=== PATIENT | female | born 1955 | race Caucasian/White ===

== ENCOUNTER → 2016-10-03 | Day surgery (SDC) | payer OTHER ==
[~2016-10-03] VITALS: Ht 165.1 cm; Wt 90.7 kg
[~2016-10-03] MED LIST: ACETAMINOPHEN 325 MG TAB PO PRN; AcetaZOLAMIDE 500 MG ER CAP PO ONE; BSS with VANC/TOB/EPI for EYE CASES IR ONE; CYCLOPENTOLATE 2% OPHTH SOLN 2ML BTL OS ONE; HEALON DUET (HEALON 10MG/ML 0.55ML & HEALON ENDOCOAT 30MG/ML 0.85ML) As Ordered ONE; IBUPOTC PO; KETOROLAC 0.5% OPHTH SOLN OS ONE; LIDOCAINE 1% SDV 5 ML VIAL As Ordered ONE; LIDOCAINE 1% SDV 5 ML VIAL SQ PRN; LIDOCAINE 4% INJ 5 ML AMP OU ONE; LR 500 ML IV ONE; MIDAZOLAM INJ 2 MG/2 ML VIAL (J2250) As Ordered ONE; MOXIFLOXACIN IN BSS 0.25MG/0.25ML INTRACAMERAL INJ (OR EYE ONLY)(J2280) As Ordered ONE; OFLOXACIN 0.3 % (OCUFLOX) OPTH SOL 5ML OS ONE; ONDANSETRON 4MG/2ML VIAL (J2405) As Ordered ONE; ONDANSETRON 4MG/2ML VIAL (J2405) IV PRN; PHENYLEPHRINE 2.5% OPHTH SOL 2ML OS ONE; POVIDONE-IODINE 5% OPHTH PREP SOL 30ML As Ordered ONE; PRIL20TA2 PO; PROPARACAINE 0.5% OPHTH SOL 15ML OS PRN; TRIAMCINOLONE PRES FR 40 MG/ML 1ML(TRIESENCE)(OR EYE ONLY)(J3300 PER 1MG) As Ordered ONE; TRIMETHOBENZAMIDE 300 MG CAP PO PRN; TROPICAMIDE 1% OPHTH SOLN 2ML OS ONE; fentaNYL 100 MCG/2 ML INJECTION (J3010) As Ordered ONE
[2016-10-03 09:55] VITALS: BP 130/78
== END | disposition home or self-care (01) ==
LOC: M SDC 07:06
PROVIDERS: ATTEND Ophthalmology
DX: H26.9 Unspecified cataract (principal); H40.9 Unspecified glaucoma; F17.290 Nicotine dependence, other tobacco product, uncomplicated; K21.9 Gastro-esophageal reflux disease without esophagitis; M06.9 Rheumatoid arthritis, unspecified; F32.9 Major depressive disorder, single episode, unspecified; R06.83 Snoring; Z78.0 Asymptomatic menopausal state; Z79.899 Other long term (current) drug therapy

== ENCOUNTER → 2016-10-23 | Day surgery (SDC) | payer OTHER ==
[~2016-10-23] VITALS: Ht 165.1 cm; Wt 84.4 kg
[~2016-10-23] MED LIST changes: +AcetaZOLAMIDE 500 MG ER CAP As Ordered ONE; +CYCLOPENTOLATE 2% OPHTH SOLN 2ML BTL OD ONE; -CYCLOPENTOLATE 2% OPHTH SOLN 2ML BTL OS ONE; +KETOROLAC 0.5% OPHTH SOLN OD ONE; -KETOROLAC 0.5% OPHTH SOLN OS ONE; +LIDOCAINE 1% SDV 5 ML VIAL SQ ONE; -LIDOCAINE 1% SDV 5 ML VIAL SQ PRN; +LR 1,000 ML IV ONE; -LR 500 ML IV ONE; +OFLOXACIN 0.3 % (OCUFLOX) OPTH SOL 5ML OD ONE; -OFLOXACIN 0.3 % (OCUFLOX) OPTH SOL 5ML OS ONE; -ONDANSETRON 4MG/2ML VIAL (J2405) As Ordered ONE; -ONDANSETRON 4MG/2ML VIAL (J2405) IV PRN; +PHENYLEPHRINE 2.5% OPHTH SOL 2ML OD ONE; -PHENYLEPHRINE 2.5% OPHTH SOL 2ML OS ONE; +PROPARACAINE 0.5% OPHTH SOL 15ML OD PRN; -PROPARACAINE 0.5% OPHTH SOL 15ML OS PRN; +TROPICAMIDE 1% OPHTH SOLN 2ML OD ONE; -TROPICAMIDE 1% OPHTH SOLN 2ML OS ONE
[2016-10-23 09:40] VITALS: BP 145/60
== END | disposition home or self-care (01) ==
LOC: M SDC 07:47
PROVIDERS: ATTEND Ophthalmology
DX: H26.9 Unspecified cataract (principal); K21.9 Gastro-esophageal reflux disease without esophagitis; M06.9 Rheumatoid arthritis, unspecified; H40.9 Unspecified glaucoma; F32.9 Major depressive disorder, single episode, unspecified; R06.83 Snoring; F17.210 Nicotine dependence, cigarettes, uncomplicated; Z79.899 Other long term (current) drug therapy; Z78.0 Asymptomatic menopausal state

== ENCOUNTER 2018-04-09 15:35 | Inpatient (IN) | payer OTHER ==
[~2018-04-09] VITALS: Ht 165.1 cm; Wt 90.9 kg
[~2018-04-09 15:35] MED LIST changes: -ACETAMINOPHEN 325 MG TAB PO PRN; -AcetaZOLAMIDE 500 MG ER CAP As Ordered ONE; -AcetaZOLAMIDE 500 MG ER CAP PO ONE; -BSS with VANC/TOB/EPI for EYE CASES IR ONE; -CYCLOPENTOLATE 2% OPHTH SOLN 2ML BTL OD ONE; -HEALON DUET (HEALON 10MG/ML 0.55ML & HEALON ENDOCOAT 30MG/ML 0.85ML) As Ordered ONE; -KETOROLAC 0.5% OPHTH SOLN OD ONE; -LIDOCAINE 1% SDV 5 ML VIAL As Ordered ONE; -LIDOCAINE 1% SDV 5 ML VIAL SQ ONE; -LIDOCAINE 4% INJ 5 ML AMP OU ONE; -LR 1,000 ML IV ONE; -MIDAZOLAM INJ 2 MG/2 ML VIAL (J2250) As Ordered ONE; -MOXIFLOXACIN IN BSS 0.25MG/0.25ML INTRACAMERAL INJ (OR EYE ONLY)(J2280) As Ordered ONE; -OFLOXACIN 0.3 % (OCUFLOX) OPTH SOL 5ML OD ONE; -PHENYLEPHRINE 2.5% OPHTH SOL 2ML OD ONE; -POVIDONE-IODINE 5% OPHTH PREP SOL 30ML As Ordered ONE; -PROPARACAINE 0.5% OPHTH SOL 15ML OD PRN; -TRIAMCINOLONE PRES FR 40 MG/ML 1ML(TRIESENCE)(OR EYE ONLY)(J3300 PER 1MG) As Ordered ONE; -TRIMETHOBENZAMIDE 300 MG CAP PO PRN; -TROPICAMIDE 1% OPHTH SOLN 2ML OD ONE; -fentaNYL 100 MCG/2 ML INJECTION (J3010) As Ordered ONE
--- NOTE | 2018-04-09 16:05 | REP ---
Clinical: Acute chest pain . Comparison: None . Findings: The mediastinum and cardiac silhouette are stable and within normal limits for portable technique. The lung estrada are clear without acute consolidation, effusion, or pneumothorax. Skeletal structures are intact. Impression: No acute cardiopulmonary process appreciated. Electronically Signed by Sumit Simons MD 04/09/2018 03:57 P
[2018-04-09 16:06] LABS: BASO % 0.3 % (0.0-1.0); EOS # 0.3 10^3/uL (0.0-0.50); EOS % 1.9 % (0.0-3.0); HEMATOCRIT 40.4 % (36.0-47.0); HEMOGLOBIN 13.8 g/dl (12.0-15.5); LYMPH # 1.8 10^3/uL (1.5-4.5); LYMPH % 12.8 % (24.0-44.0); MEAN CORPUSCULAR HEMOGLOBIN 29.3 pg (27.0-33.0); MEAN CORPUSCULAR HGB CONC 34.2 g/dl (32.0-36.5); MEAN CORPUSCULAR VOLUME 85.8 fl (80.0-96.0); MONO # 1.1 10^3/uL (0.0-0.8); MONO % 7.4 % (0.0-5.0); NEUTROPHILS % 77.2 % (36.0-66.0); PLATELET COUNT, AUTOMATED 293 10^3/uL (150-450); RED BLOOD COUNT 4.71 10^6/uL (4.00-5.40); WHITE BLOOD COUNT 14.3 10^3/uL (4.0-10.0)
[2018-04-09] MEDS ORDERED: NITROGLYCERIN 0.4 MG SUBL TABLET SL STA (16:07)
[2018-04-09 16:12] LABS: VENOUS BASE EXCESS -2.2 (-2.0-2.0); VENOUS O2 SATURATION 81.4 % (60.0-80.0); VENOUS PARTIAL PRESSURE CO2 36.2 mmHg (38.0-50.0); VENOUS PARTIAL PRESSURE O2 44.9 mmHg (30.0-50.0); VENOUS PH 7.401 UNITS (7.330-7.430); VENOUS STANDARD HCO3 22.2 MEQ/L; VENOUS TOTAL CO2 23.1 MEQ/L (24.0-28.0)
[2018-04-09] MEDS ORDERED: MORPHINE 2 MG/ML 1ML SYRINGE (J2270) IV ONE ×2 (16:15→16:45)
[2018-04-09 16:28] VITALS: BP 126/75
[2018-04-09 16:44] LABS: ALBUMIN 3.4 GM/DL (3.2-5.2); ALT/SGPT 17 U/L (12-78); BILIRUBIN,DIRECT < 0.1 MG/DL (0.0-0.2); BILIRUBIN,TOTAL 0.3 MG/DL (0.2-1.0); BLOOD UREA NITROGEN 11 MG/DL (7-18); CALCIUM LEVEL 8.6 MG/DL (8.8-10.2); CARBON DIOXIDE LEVEL 20 MEQ/L (21-32); CHLORIDE LEVEL 106 MEQ/L (98-107); CK-MB VALUE MASS < 1.0 NG/ML (<3.6); CPK CREATINE PHOSPHOKINASE 51 U/L (26-192); CREATININE FOR GFR 0.78 MG/DL (0.55-1.30); GLOMERULAR FILTRATION RATE > 60.0 (>45); GLUCOSE, FASTING 119 MG/DL (70-100); LIPASE 105 U/L (73-393); MB/CK RELATIVE INDEX 1.96 (< OR =4); NT-PRO BNP 354 PG/ML (<125); POTASSIUM SERUM 4.1 MEQ/L (3.5-5.1); SODIUM LEVEL 136 MEQ/L (136-145); TOTAL PROTEIN 7.1 GM/DL (6.4-8.2); TROPONIN I < 0.02 NG/ML (< 0.10)
[2018-04-09] MEDS ORDERED: NS 1,000 ML IV ONE (17:00)
[2018-04-09] MEDS ORDERED: ISOVUE-370 76% 100ML VIAL (Q9967) As Ordered ONE (17:01)
--- NOTE | 2018-04-09 17:24 | REPVR ---
EXAM: CT Angiography Chest With Contrast EXAM DATE/TIME: 04/09/2018 5:06 PM CLINICAL HISTORY: 62 years old, female; Pain and signs and symptoms; Shortness of breath; Chest pain; Type not specified; Additional info: Cp and SOB TECHNIQUE: Axial computed tomographic angiography images of the chest with intravenous contrast using CT angiography protocol. All CT scans at this facility use at least one of these dose optimization techniques: automated exposure control; mA and/or kV adjustment per patient size (includes targeted exams where dose is matched to clinical indication); or iterative reconstruction. Coronal and sagittal reformatted images were created and reviewed. MIP reconstructed images were created and reviewed. CONTRAST: 75 ml of ISOVUE 370 administered intravenously. COMPARISON: CR PORTABLE CHEST X-RAY 04/09/2018 3:51 PM FINDINGS: Pulmonary arteries: Suboptimal inspiratory effort. No pulmonary embolus. Aorta: The aorta demonstrates mild atherosclerotic calcification. No aortic dissection or aneurysm. Lungs: Mild pleural-parenchymal scarring both apices. There is bibasilar compressive atelectasis. Small foci of emphysema and peripheral airway disease in the upper lung zones. Pleural space: Normal. No pneumothorax. No pleural effusion. Heart: Small pericardial effusion. Mediastinum: Moderate hiatal hernia. Lymph nodes: Unremarkable. No enlarged lymph nodes. Bones/joints: The spine demonstrates mild degenerative changes. Soft tissues: There bilateral breast implants. IMPRESSION: 1. No aortic dissection or aneurysm. 2. Small pericardial effusion. 3. Moderate hiatal hernia. 4. No pulmonary embolus. Electronically signed by: Justo Last On 04/09/2018 17:24:41 PM
[2018-04-09] MEDS ORDERED: KETOROLAC 30 MG/ML VIAL (J1885) IV ONE ×2 (17:45)
[2018-04-09] MEDS ORDERED: HYDROMORPHONE HCL 0.5 MG/ 0.5 ML SYRINGE (J1170 PER 1) As Ordered ONE (18:13)
[2018-04-09] MEDS: HYDROMORPHONE HCL 0.5 MG/ 0.5 ML SYRINGE (J1170 PER 1) IV PRN ×2 (18:17→21:51)
[2018-04-09] MEDS ORDERED: XALA0.007 OU (18:34)
[2018-04-09] MEDS ORDERED: BRIM2OPD OD (18:34)
[2018-04-09] MEDS ORDERED: TIMO0.5S29 OD (18:34)
[2018-04-09] MEDS ORDERED: PANTOPRAZOLE 40MG INJ (PROTONIX) (C9113) IV ONE (19:30)
[2018-04-09] MEDS ORDERED: ACETAMINOPHEN TAB 650MG DOSE (2X325MG) PO PRN (19:45)
[2018-04-09] MEDS ORDERED: GI COCKTAIL 50ML BTL(HYOSCYAMINE/MAALOX/LIDOCAINE VISCOUS)(1:3:1) PO ONE (20:00)
[2018-04-09] MEDS ORDERED: NS 1,000 ML IV SCH (20:55)
[2018-04-09] MEDS: LATANOPROST 0.005% OPHTH SOLN 2.5 ML OU SCH (21:00)
[2018-04-09] MEDS: BRIMONIDINE 0.15% OPHTH SOLN 5 ML OD SCH (21:00)
[2018-04-09] MEDS ORDERED: ONDANSETRON 4MG/2ML VIAL (J2405) As Ordered ONE (22:10)
[2018-04-09 22:50] VITALS: BP 125/78
[2018-04-09] MEDS: SUCRALFATE 1 GM TAB PO SCH (23:00)
[2018-04-09] MEDS: ONDANSETRON 4MG/2ML VIAL (J2405) IV SCH (23:00)
[2018-04-10] MEDS: ONDANSETRON 4MG/2ML VIAL (J2405) IV SCH ×4 (04:15→21:30)
[2018-04-10] MEDS: HEPARIN SOD (PORCINE) 5000 UNITS/ML VIAL SC SCH ×3 (05:42→21:30)
[2018-04-10 05:59] LABS: HEMATOCRIT 37.7 % (36.0-47.0); HEMOGLOBIN 12.3 g/dl (12.0-15.5); MEAN CORPUSCULAR HEMOGLOBIN 28.7 pg (27.0-33.0); MEAN CORPUSCULAR HGB CONC 32.6 g/dl (32.0-36.5); MEAN CORPUSCULAR VOLUME 87.9 fl (80.0-96.0); PLATELET COUNT, AUTOMATED 268 10^3/uL (150-450); RED BLOOD COUNT 4.29 10^6/uL (4.00-5.40); WHITE BLOOD COUNT 18.6 10^3/uL (4.0-10.0)
[2018-04-10 06:00] VITALS: BP 120/64
[2018-04-10 06:34] LABS: BLOOD UREA NITROGEN 17 MG/DL (7-18); CALCIUM LEVEL 8.5 MG/DL (8.8-10.2); CARBON DIOXIDE LEVEL 22 MEQ/L (21-32); CHLORIDE LEVEL 106 MEQ/L (98-107); CREATININE FOR GFR 0.83 MG/DL (0.55-1.30); GLOMERULAR FILTRATION RATE > 60.0 (>45); GLUCOSE, FASTING 154 MG/DL (70-100); POTASSIUM SERUM 4.4 MEQ/L (3.5-5.1); SODIUM LEVEL 136 MEQ/L (136-145)
[2018-04-10] MEDS ORDERED: OMEPRAZOLE 20 MG CAP PO SCH (09:00)
[2018-04-10 10:00] VITALS: BP 135/79
[2018-04-10] MEDS: SUCRALFATE 1 GM TAB PO SCH ×4 (10:10→21:30)
[2018-04-10] MEDS: PANTOPRAZOLE 40MG INJ (PROTONIX) (C9113) IV SCH ×2 (10:10→21:30)
[2018-04-10] MEDS: KETOROLAC 30 MG/ML VIAL (J1885) IV SCH ×2 (10:14→18:01)
[2018-04-10] MEDS: LATANOPROST 0.005% OPHTH SOLN 2.5 ML OU SCH ×2 (10:15→21:29)
[2018-04-10] MEDS: BRIMONIDINE 0.15% OPHTH SOLN 5 ML OD SCH ×2 (10:15→21:29)
[2018-04-10] MEDS ORDERED: methylPREDNISolone INJ 40 MG/1 ML VIAL (J2920) IV ONE (10:30)
[2018-04-10 10:31] LABS: CK-MB VALUE MASS < 1.0 NG/ML (<3.6); CPK CREATINE PHOSPHOKINASE 39 U/L (26-192); MB/CK RELATIVE INDEX 2.56 (< OR =4); TROPONIN I < 0.02 NG/ML (< 0.10)
--- NOTE | 2018-04-10 11:11 | IPNPDOC ---
Subjective Date Seen The patient was seen on 04/10/18. Subjective Chief Complaint/HPI Chest pain and difficulty in breathing Events since last encounter Continues to have diffuse chest pain on both sides below her breasts says its wrapping around her chest causing her to have difficulty in taking deep breaths. No appetite. also complains of wrist pain and knee pains. No fever or chills, no cough or phlegm. Objective Physical Examination General Exam: Positive: Alert, Cooperative, No Acute Distress Eye Exam: Positive: PERRLA, Conjunctiva & lids normal, EOMI; Negative: Sclera icteric ENT Exam: Positive: Atraumatic, Mucous membr. moist/pink, Pharynx Normal Neck Exam: Positive: Supple; Negative: JVD, thyromegaly Chest Exam: Positive: Clear to auscultation, Normal air movement, Other (tender to palpation on the ribs across the whole of chest wall) Heart Exam: Positive: Rate Normal, Regular Rhythm, Normal S1, Normal S2; Negative: Murmurs, Rubs Abdomen Exam: Positive: Normal bowel sounds, Soft; Negative: Tenderness, Hepatospenomegaly Extremity Exam: Positive: Normal pulses; Negative: Clubbing, Cyanosis, Edema Skin Exam: Positive: Nl turgor and temperature; Negative: Rash, Breakdown Psych Exam: Positive: Mental status NL, Mood NL, Oriented x 3 Assessment /Plan Assessment This is a 62 year old female with no PMD and PMH of arthritis from a young age told was OA and OP not on any prescription medications came to the ED for severe chest pain for one causing her to have difficulty in breathing. She was admitted for orh up of chest pain and to rule out ACS> Chest pain most probably musculoskeletal vs Gastritis and reflux cardiac enzymes are negative and ekg no changes of ACS CT angio of the chest negative. will give toradol and tylenol for pain control will also give a dose of methyl pred for antiinflammatory effects . continue pantoprazole, sucralfate. Arthritis ESR is 44 will check crp, RA, SAKINA. continue toradol and tylenol Hiatal hernia seen in CT chest continue antireflux measures. Plan/VTE VTE Prophylaxis Ordered?: Yes VS, I&O, 24H, Fishbone Vital Signs/I&O Vital Signs Date Time Temp Pulse Resp B/P (MAP) Pulse Ox O2 Delivery O2 Flow Rate FiO2 04/10/18 10:00 97.9 110 19 135/79 (97) 91 Room Air I&O- Last 24 Hours up to 6 AM 04/10/18 05:59 Intake Total 1000 ml Output Total 0 ml Balance 1000 ml Laboratory Data 24H LABS Laboratory Tests 2 04/09/18 16:00: Immature Granulocyte % (Auto) 0.4, White Blood Count 14.3H, Red Blood Count 4.71, Hemoglobin 13.8, Hematocrit 40.4, Mean Corpuscular Volume 85.8, Mean Corpuscular Hemoglobin 29.3, Mean Corpuscular Hemoglobin Concent 34.2, Red Cell Distribution Width 13.0, Platelet Count 293, Neutrophils (%) (Auto) 77.2H, Lymphocytes (%) (Auto) 12.8L, Monocytes (%) (Auto) 7.4H, Eosinophils (%) (Auto) 1.9, Basophils (%) (Auto) 0.3, Neutrophils # (Auto) 11.0H, Lymphocytes # (Auto) 1.8, Monocytes # (Auto) 1.1H, Eosinophils # (Auto) 0.3, Basophils # (Auto) 0.0, Nucleated Red Blood Cells % (auto) 0.0, Erythrocyte Sedimentation Rate 44H, Blood Gas Bicarbonate Standard 22.2, Venous Blood pH 7.401, Venous Blood Partial Pressure CO2 36.2L, Venous Blood Partial Pressure O2 44.9, Venous Blood Total Carbon Dioxide 23.1L, Venous Blood HCO3 22.0L, Venous Blood Oxygen Saturation 81.4H, Venous Blood Base Excess -2.2L, Anion Gap 10, Glomerular Filtration Rate > 60.0, Calcium Level 8.6L, Aspartate Amino Transf (AST/SGOT) 14, Alanine Aminotransferase (ALT/SGPT) 17, Alkaline Phosphatase 77, Total Bilirubin 0.3, Direct Bilirubin < 0.1, Total Creatine Kinase 51, Creatine Kinase MB < 1.0, Creatine Kinase MB Relative Index 1.96, Troponin I < 0.02, OB-Bcr-C-Type Natriuretic Peptide 354H, Total Protein 7.1, Albumin 3.4, Albumin/Globulin Ratio 0.92L, Lipase 105, Thyroid Stimulating Hormone (TSH) 2.730 04/10/18 05:45: Nucleated Red Blood Cells % (auto) 0.0, Anion Gap 8, Glomerular Filtration Rate > 60.0, Calcium Level 8.5L, Total Creatine Kinase 39, Creatine Kinase MB < 1.0, Creatine Kinase MB Relative Index 2.56, Troponin I < 0.02, Blood Urea Nitrogen 17#, Creatinine 0.83, Sodium Level 136, Potassium Level 4.4, Chloride Level 106, Carbon Dioxide Level 22 CBC/BMP Laboratory Tests 04/09/18 16:00 Red Blood Count 4.71, Mean Corpuscular Volume 85.8, Mean Corpuscular Hemoglobin 29.3, Mean Corpuscular Hemoglobin Concent 34.2, Red Cell Distribution Width 13.0, Neutrophils (%) (Auto) 77.2 H, Lymphocytes (%) (Auto) 12.8 L, Monocytes (%) (Auto) 7.4 H, Eosinophils (%) (Auto) 1.9, Basophils (%) (Auto) 0.3, Neutroph ils # (Auto) 11.0 H, Lymphocytes # (Auto) 1.8, Monocytes # (Auto) 1.1 H, Eosinophils # (Auto) 0.3, Basophils # (Auto) 0.0 04/10/18 05:45 Red Blood Count 4.29, Mean Corpuscular Volume 87.9, Mean Corpuscular Hemoglobin 28.7, Mean Corpuscular Hemoglobin Concent 32.6, Red Cell Distribution Width 13.4, Calcium Level 8.5 L, Total Creatine Kinase 39 Microbiology Microbiology 04/09/18 Blood Culture, Received Pending 04/09/18 Blood Culture, Received Pending JANI GOODSON MD Apr 10, 2018 11:11
[2018-04-10] MEDS: ACETAMINOPHEN 500 MG TAB PO SCH ×2 (13:42→21:30)
[2018-04-10 14:00] VITALS: BP 127/73
--- NOTE | 2018-04-10 16:48 | ECGEPIP ---
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
[2018-04-10] MEDS ORDERED: NS 1,000 ML IV SCH (20:55)
--- NOTE | 2018-04-10 21:31 | HPE ---
DATE OF ADMISSION: 04/09/2018 CHIEF COMPLAINT: Chest pain with shortness of breath. HISTORY OF PRESENT ILLNESS: This is a 62-year-old female with a past medical history of glaucoma and acid reflux, arthritis on chronic nonsteroidal antiinflammatory drugs, who presented with a chief complaint of chest pain. She reports that the chest pain started last week, it has been 10 out of 10, associated with shortness of breath and deep breathing. She said that it started around her right shoulder area and moved under her breast; however, by Sunday this had actually completely resolved, but today the pain came back again, severe 10 out of 10 pain all on her breast area. She describes the pain as sharp and worse with deep inhalation, it is practically constant. She currently rates it as an 11 out of 10. She does report that she takes ibuprofen 1000 mg twice daily for osteoarthritis. She has been self medicating her arthritic pain. She does not have a primary care doctor and does not regularly followup with a physician. She denies any history of heart disease. No recent immobility. No recent viral infection. REVIEW OF SYSTEMS: Negative all 14 systems except as noted above. PAST MEDICAL HISTORY: As noted in history of present illness. PAST SURGICAL HISTORY: History of cataract surgery and breast implants over 20 years ago. MEDICATIONS: The patient's home medications are: - Timolol eye drops - famotidine eye drops - Prilosec 20 mg daily - latanoprost eye drops - ibuprofen Please see medical record for full medication list. SOCIAL HISTORY: The patient reports that she smokes one pack per day. No drugs or alcohol. She lives with her boyfriend. She has never been and has no children. FAMILY HISTORY: No family history of gastrointestinal malignancy. PHYSICAL EXAMINATION: Initially she was afebrile at 98.5, blood pressure 120/77, heart rate 104, saturating 94% on room air. GENERAL: She appears distressed and in pain. HEENT: Oropharynx is clear. NECK: Supple. CARDIOVASCULAR: Regular rate and rhythm. No murmurs, rubs or gallops. No pericardial rub heard. The patient has no reproducible chest pain. LUNGS: Clear to auscultation bilaterally. ABDOMEN: Soft, nontender, nondistended. Positive bowel sounds. EXTREMITIES: No clubbing, cyanosis or edema. NEUROLOGIC: Alert and oriented times three. Follows simple commands. No focal neurological deficits. SKIN: Intact. PSYCHIATRIC: Mood stable. LABORATORIES: White count is elevated to 14.3. Chemistry reveals a potassium of 4.1, creatinine 0.7. Liver function tests unremarkable. Troponin was negative times one. TSH unremarkable. BNP was slightly elevated at 354. IMAGING: The patient had a CT angio done that shows no aortic dissection or aneurysm. There was a small pericardial effusion. No pulmonary embolus. Moderate hiatal hernia. She also had a chest x-ray done on admission that showed no acute process. She also had an electrocardiogram (EKG) that did not show any ST elevations. ASSESSMENT AND PLAN: This is a 62-year-old female with a past medical history of glaucoma, gastroesophageal reflux disease (GERD), arthritis on chronic high dose nonsteroidal antiinflammatory drugs (NSAIDs), who presents with chief complaint of nonretractable chest pain. 1. Chest pain, may be secondary to peptic ulcer disease versus pericardial process. I am most concerned that this is related to peptic ulcer disease actually because the patient takes high doses of ibuprofen and is not monitored clinically by a physician. I did speak to truck bench mechanic revenue enforcement collection agent, Dr. Rodriguez, given that the patient did have a small pericardial effusion and had possible concerns of pericarditis, but agreed to treat a possible gastrointestinal etiology first and we will reconsult cardiology if her symptoms do not improve. Further supporting a diagnosis of peptic ulcer disease is that the patient did not improve with the Toradol that she was given in the emergency room, which normally would significantly improve pericarditis. Therefore, I have started the patient on IV proton pump inhibitor twice a day, as well as Carafate four times daily. I have given her one dose of a GI cocktail. For now, she is hemodynamically stable. I will keep her nothing by mouth and put her on maintenance IV fluids at 75 mL per hour. I will keep her n.p.o. in case GI wants to do a possible scope tomorrow. Primary team should consult GI in the morning. We will see if this improves her symptoms and if not consider cardiology consultation for possible pericardial process. It could also be musculoskeletal in origin. If she has pain overnight, I would stick to giving her morphine as needed. She is opioid naive and we will have to be careful with her dosing. For now, I am not going to give her any narcotics in hopes that the GI medications may improve her symptoms, but if narcotics are needed overnight then would prefer narcotics instead of NSAIDs. 2. History of glaucoma. Continue home medications. 3. Deep vein thrombosis (DVT) prophylaxis. We will place on subcutaneous heparin. The patient is DO NOT RESUSCITATE, DO NOT INTUBATE.
[2018-04-10 22:00] VITALS: BP 120/78
[2018-04-11] MEDS: KETOROLAC 30 MG/ML VIAL (J1885) IV SCH ×2 (01:39→10:42)
[2018-04-11 02:00] VITALS: BP 112/70
[2018-04-11] MEDS: HEPARIN SOD (PORCINE) 5000 UNITS/ML VIAL SC SCH (05:01)
[2018-04-11] MEDS: ACETAMINOPHEN 500 MG TAB PO SCH (05:02)
[2018-04-11] MEDS: ONDANSETRON 4MG/2ML VIAL (J2405) IV SCH ×2 (05:02→10:42)
[2018-04-11 05:56] LABS: HEMATOCRIT 31.1 % (36.0-47.0); HEMOGLOBIN 10.4 g/dl (12.0-15.5); MEAN CORPUSCULAR HEMOGLOBIN 29.1 pg (27.0-33.0); MEAN CORPUSCULAR HGB CONC 33.4 g/dl (32.0-36.5); MEAN CORPUSCULAR VOLUME 87.1 fl (80.0-96.0); PLATELET COUNT, AUTOMATED 221 10^3/uL (150-450); RED BLOOD COUNT 3.57 10^6/uL (4.00-5.40)
[2018-04-11 06:00] VITALS: BP 112/60
[2018-04-11] MEDS: LATANOPROST 0.005% OPHTH SOLN 2.5 ML OU SCH (08:04)
[2018-04-11] MEDS: BRIMONIDINE 0.15% OPHTH SOLN 5 ML OD SCH (08:04)
[2018-04-11] MEDS: SUCRALFATE 1 GM TAB PO SCH (08:05)
[2018-04-11] MEDS: PANTOPRAZOLE 40MG INJ (PROTONIX) (C9113) IV SCH (08:05)
[2018-04-11] MEDS ORDERED: INFLUENZA QUADRIVALENT PF VACCINE 0.5ML SYRINGE (90686) IM ONE (09:00)
[2018-04-11 10:00] VITALS: BP 112/72
[2018-04-11] MEDS ORDERED: PRED20TA PO (11:41)
[2018-04-11] MEDS ORDERED: ACET-683 PO (11:41)
[2018-04-11] MEDS ORDERED: SUCR1TA PO (11:41)
[2018-04-11] MEDS ORDERED: IBUPOTC PO (11:41)
--- NOTE | 2018-04-29 08:48 | DS.PDOC ---
Discharge Summary General Date of Admission Apr 09, 2018 at 19:32 Date of Discharge 04/11/18 Attending Physician: JANI GOODSON MD Discharge Summary PROCEDURES PERFORMED DURING STAY: [None]. DISCHARGE DIAGNOSES: Musculoskeletal chest pain May have peptic ulcer disease also osteoarthritis glaucoma COMPLICATIONS/CHIEF COMPLAINT: Chest Pain. HISTORY OF PRESENT ILLNESS: Please see history and physical HOSPITAL COURSE: This is a 62 year old female with no PMD and PMH of arthritis from a young age told was OA and OP not on any prescription medications came to the ED for severe chest pain for one causing her to have difficulty in breathing. She was admitted for work up of chest pain and to rule out ACS> Chest pain most probably musculoskeletal vs Gastritis and reflux cardiac enzymes are negative and ekg no changes of ACS CT angio of the chest negative. will give toradol and tylenol for pain control will also give a dose of methyl pred for antiinflammatory effects . continue pantoprazole, sucralfate. Arthritis ESR is 44 will check crp, RA, SAKINA. continue toradol and tylenol Hiatal hernia seen in CT chest continue antireflux measures. DISCHARGE MEDICATIONS: Please see below. ALLERGIES: Please see below. PHYSICAL EXAMINATION ON DISCHARGE: VITAL SIGNS: Please see below. General Exam: Positive: Alert, Cooperative, No Acute Distress Eye Exam: Positive: PERRLA, Conjunctiva & lids normal, EOMI; Negative: Sclera icteric ENT Exam: Positive: Atraumatic, Mucous membr. moist/pink, Pharynx Normal Neck Exam: Positive: Supple; Negative: JVD, thyromegaly Chest Exam: Positive: Clear to auscultation, Normal air movement, Other (tender to palpation on the ribs across the whole of chest wall) Heart Exam: Positive: Rate Normal, Regular Rhythm, Normal S1, Normal S2; Negative: Murmurs, Rubs Abdomen Exam: Positive: Normal bowel sounds, Soft; Negative: Tenderness, Hepatospenomegaly Extremity Exam: Positive: Normal pulses; Negative: Clubbing, Cyanosis, Edema Skin Exam: Positive: Nl turgor and temperature; Negative: Rash, Breakdown Psych Exam: Positive: Mental status NL, Mood NL, Oriented x 3 LABORATORY DATA: Please see below. ACTIVITY: [As tolerated]. DIET: As tolerated DISPOSITION: 01 Home, Self-Care. DISCHARGE INSTRUCTIONS: Follow up with PMD in 2 weeks DISCHARGE CONDITION: [Stable]. TIME SPENT ON DISCHARGE: Greater than 30 minutes. Vital Signs/I&Os Vital Signs Label Value Date Time Patient Temperature 97.2 degrees F 04/11/18 1000 Temperature Source Temporal 04/11/18 1000 Pulse 81 04/11/18 1000 Respiratory Rate 18 bpm 04/11/18 1000 Blood Pressure Assessment 112/72 (85) 04/11/18 1000 Bedside Pulse Oximetry 92 % 04/11/18 1000 Item Value Date Time Oxygen Delivery Method Room Air 04/11/18 1000 Laboratory Data CBC/BMP Item Value Date Time Sodium Level 136 MEQ/L 04/10/18 0545 Potassium Level 4.4 MEQ/L 04/10/18 0545 Chloride Level 106 MEQ/L 04/10/18 0545 Carbon Dioxide Level 22 MEQ/L 04/10/18 0545 Anion Gap 8 MEQ/L 04/10/18 0545 Blood Urea Nitrogen 17 MG/DL # 04/10/18 0545 Creatinine 0.83 MG/DL 04/10/18 0545 Glomerular Filtration Rate > 60.0 04/10/18 0545 Fasting Glucose 154 MG/DL H 04/10/18 0545 Calcium Level 8.5 MG/DL L 04/10/18 0545 Total Creatine Kinase 39 U/L 04/10/18 0545 Creatine Kinase MB < 1.0 NG/ML 04/10/18 0545 Creatine Kinase MB Relative Index 2.56 04/10/18 0545 Troponin I < 0.02 NG/ML 04/10/18 0545 Total Creatine Kinase 51 U/L 04/09/18 1600 Creatine Kinase MB < 1.0 NG/ML 04/09/18 1600 Creatine Kinase MB Relative Index 1.96 04/09/18 1600 Troponin I < 0.02 NG/ML 04/09/18 1600 White Blood Count 15.0 10^3/uL H 04/11/18 0528 Red Blood Count 3.57 10^6/uL L 04/11/18 0528 Hemoglobin 10.4 g/dl L 04/11/18 0528 Hematocrit 31.1 % L 04/11/18 0528 Mean Corpuscular Volume 87.1 fl 04/11/18 0528 Mean Corpuscular Hemoglobin 29.1 pg 04/11/18 0528 Mean Corpuscular Hemoglobin Concent 33.4 g/dl 04/11/18 0528 Red Cell Distribution Width 13.2 % 04/11/18527 Platelet Count 221 10^3/uL 04/11/1828 Discharge Medications Scheduled Brimonidine Tartrate 0.15% (Brimonidine Tartrate) 100 Drop/5 Ml Soln, 1 DROP OD BID, (Reported) Latanoprost (Xalatan) 0.005 % Ivoyr, 1 DROP OU BID, (Reported) Omeprazole Magnesium (Prilosec Otc) 20 Mg Tab, 20 MG PO DAILY, (Reported) Prednisone (Prednisone) 20 Mg Tab, 40 MG PO DAILY Sucralfate (Carafate) 1 Gm Tab, 1 GM PO QID Timolol Maleate (Timolol Maleate) 0.5 % Ivory, 1 DROP OD BID, (Reported) Scheduled PRN Acetaminophen (Acetaminophen Extra Stren) 500 Mg Tab, 1,000 MG PO Q8HP PRN for PAIN Ibuprofen (Ibuprofen) 200 Mg Tab, 400 MG PO Q8HP PRN for PAIN Allergies Coded Allergies: No Known Drug Allergy (Verified Allergy, Unknown, 10/16/16) JANI GOODSON MD Apr 29, 2018 08:48
== END 2018-04-11 13:03 | disposition home or self-care (01) | DRG 241 ==
LOC: EDSEX 15:35 → M ED 15:35 → EDBD 15:35 → M ED INP 19:32 → M MSPAV 22:50
PROVIDERS: ADMIT Internal Medicine; ATTEND Internal Medicine Nephrology
DX: K27.9 Peptic ulcer, site unspecified, unspecified as acute or chronic, without hemorrhage or perforation (principal); F17.210 Nicotine dependence, cigarettes, uncomplicated; R07.89 Other chest pain; H40.9 Unspecified glaucoma; K21.9 Gastro-esophageal reflux disease without esophagitis; K44.9 Diaphragmatic hernia without obstruction or gangrene; M19.90 Unspecified osteoarthritis, unspecified site; Z66 Do not resuscitate; Z79.1 Long term (current) use of non-steroidal anti-inflammatories (NSAID); Z79.899 Other long term (current) drug therapy; F17.200 Nicotine dependence, unspecified, uncomplicated

== ENCOUNTER → 2018-06-05 | Outpatient (REF) | payer OTHER ==
[~2018-06-05] MED LIST changes: +ACET-683 PO; +BRIM2OPD OD; +PRED20TA PO; +SUCR1TA PO; +TIMO0.5S29 OD; +XALA0.007 OU
[2018-06-05 13:31] LABS: ALBUMIN 3.5 GM/DL (3.2-5.2); ALT/SGPT 24 U/L (12-78); BILIRUBIN,TOTAL 0.8 MG/DL (0.2-1.0); BLOOD UREA NITROGEN 11 MG/DL (7-18); CALCIUM LEVEL 8.7 MG/DL (8.8-10.2); CARBON DIOXIDE LEVEL 26 MEQ/L (21-32); CHLORIDE LEVEL 105 MEQ/L (98-107); CHOLESTEROL LEVEL 237 MG/DL (<200); CHOLESTEROL RISK RATIO 6.076 (<5); CREATININE FOR GFR 0.83 MG/DL (0.55-1.30); GLOMERULAR FILTRATION RATE > 60.0 (>45); GLUCOSE, FASTING 125 MG/DL (70-100); HDL CHOLESTEROL 39 MG/DL (>40); LDL CHOLESTEROL 130 MG/DL (<100); NON-HDL-C 198 MG/DL; POTASSIUM SERUM 4.5 MEQ/L (3.5-5.1); SODIUM LEVEL 139 MEQ/L (136-145); TOTAL PROTEIN 7.2 GM/DL (6.4-8.2); TRIGLYCERIDES LEVEL 340 MG/DL (<150)
== END ==
LOC: M LAB REF 12:34
PROVIDERS: ATTEND Family Medicine Addiction Medicine
DX: R07.89 Other chest pain (principal)

== ENCOUNTER → 2018-09-19 | Outpatient (REF) | payer OTHER ==
[2018-09-19 14:56] LABS: ALBUMIN 3.3 GM/DL (3.2-5.2); ALT/SGPT 18 U/L (12-78); BILIRUBIN,TOTAL 0.7 MG/DL (0.2-1.0); BLOOD UREA NITROGEN 14 MG/DL (7-18); CALCIUM LEVEL 8.6 MG/DL (8.8-10.2); CARBON DIOXIDE LEVEL 25 MEQ/L (21-32); CHLORIDE LEVEL 108 MEQ/L (98-107); CHOLESTEROL LEVEL 121 MG/DL (<200); CHOLESTEROL RISK RATIO 3.102 (<5); CREATININE FOR GFR 0.75 MG/DL (0.55-1.30); GLOMERULAR FILTRATION RATE > 60.0 (>45); GLUCOSE, FASTING 111 MG/DL (70-100); HDL CHOLESTEROL 39 MG/DL (>40); LDL CHOLESTEROL 35 MG/DL (<100); NON-HDL-C 82 MG/DL; POTASSIUM SERUM 4.6 MEQ/L (3.5-5.1); SODIUM LEVEL 139 MEQ/L (136-145); TOTAL PROTEIN 7.2 GM/DL (6.4-8.2); TRIGLYCERIDES LEVEL 234 MG/DL (<150)
== END ==
LOC: M LAB REF 12:44
PROVIDERS: ATTEND Family Medicine Addiction Medicine
DX: E78.49 Other hyperlipidemia (principal); R73.01 Impaired fasting glucose; F34.1 Dysthymic disorder

== ENCOUNTER → 2018-12-23 | Outpatient (REF) | payer OTHER ==
[2018-12-23 14:33] LABS: ALBUMIN 3.4 GM/DL (3.2-5.2); ALT/SGPT 13 U/L (12-78); BILIRUBIN,TOTAL 0.4 MG/DL (0.2-1.0); BLOOD UREA NITROGEN 15 MG/DL (7-18); CALCIUM LEVEL 8.6 MG/DL (8.8-10.2); CARBON DIOXIDE LEVEL 23 MEQ/L (21-32); CHLORIDE LEVEL 108 MEQ/L (98-107); CHOLESTEROL LEVEL 182 MG/DL (<200); CHOLESTEROL RISK RATIO 5.055 (<5); CREATININE FOR GFR 0.82 MG/DL (0.55-1.30); GLOMERULAR FILTRATION RATE > 60.0 (>45); GLUCOSE, FASTING 116 MG/DL (70-100); HDL CHOLESTEROL 36 MG/DL (>40); LDL CHOLESTEROL 95 MG/DL (<100); NON-HDL-C 146 MG/DL; POTASSIUM SERUM 4.3 MEQ/L (3.5-5.1); SODIUM LEVEL 140 MEQ/L (136-145); TRIGLYCERIDES LEVEL 256 MG/DL (<150)
== END ==
LOC: M LAB REF 12:30
PROVIDERS: ATTEND Family Medicine Addiction Medicine
DX: R73.01 Impaired fasting glucose (principal); E78.49 Other hyperlipidemia

== ENCOUNTER → 2019-01-15 | Outpatient (REF) | payer OTHER ==
[2019-01-15 15:33] LABS: URIC ACID 4.9 MG/DL (2.6-6.0)
[2019-01-15 15:53] LABS: HEMOGLOBIN A1c 6.4 %
== END ==
LOC: M LAB REF 14:56
PROVIDERS: ATTEND Nurse Practitioner Family
DX: Z23 Encounter for immunization (principal); M25.50 Pain in unspecified joint

== ENCOUNTER → 2019-04-18 | Outpatient (CLI) | payer OTHER ==
[~2019-04-18] MED LIST changes: +ADVI200T17 PO; +FOLI1TAB11 PO; +IBUP200T45 PO; +METH2.5T48 PO; +PRED10TA2 PO; +TESS100C PO
--- NOTE | 2019-04-18 14:07 | REP ---
BILATERAL HAND RADIOGRAPHS: Two views on each side. HISTORY: Pain. FINDINGS: AP and lateral views of the left hand demonstrate widening of the navicular lunate interval consistent with degeneration of the navicular lunate ligament. There is diffuse osteopenia. There is no erosive change or ulnar drift visible. Joint spaces are preserved. Subcortical cyst formation is seen in the mid navicular bone and in the tip of the ulnar styloid on the left. Soft tissues are unremarkable. AP and lateral views of the right hand demonstrate diffuse osteopenia. There is also widening of the navicular lunate interval on the right suggesting degeneration of that ligament. No erosive changes seen. There is mild osteoarthritic spurring at the IP joint of the thumb and at the 2nd MCP joint. IMPRESSION: No erosive changes seen. Diffuse osteopenia. Minimal degenerative changes. Navicular lunate interval widening bilaterally. Electronically Signed by Varun Tan MD 04/19/2019 05:16 A
== END ==
LOC: M RAD 10:16
PROVIDERS: ATTEND Nurse Practitioner Family
DX: M85.841 Other specified disorders of bone density and structure, right hand (principal); M85.842 Other specified disorders of bone density and structure, left hand; M25.50 Pain in unspecified joint

== ENCOUNTER → 2019-04-18 | Outpatient (CLI) | payer OTHER ==
--- NOTE | 2019-04-18 12:21 | REP ---
CHEST, TWO VIEWS: COMPARISON: 04/09/2018 Two views of the chest are performed. There is no acute infiltrate or pulmonary edema. The heart is not enlarged. There is a moderate hiatal hernia. Mediastinal silhouette is unchanged. IMPRESSION: No active pulmonary disease. Electronically Signed by Agus Mitchell MD 04/19/2019 03:17 P
== END ==
LOC: M RAD 10:20
PROVIDERS: ATTEND Nurse Practitioner Family
DX: K44.9 Diaphragmatic hernia without obstruction or gangrene (principal); R06.09 Other forms of dyspnea; R05 Cough; J06.9 Acute upper respiratory infection, unspecified

== ENCOUNTER → 2019-04-22 | Outpatient (REF) | payer OTHER ==
[2019-04-22 13:56] LABS: BASO % 0.2 % (0.0-1.0); EOS # 0.1 10^3/uL (0.0-0.5); EOS % 1.5 % (0.0-3.0); LYMPH # 1.7 10^3/uL (1.5-5.0); LYMPH % 32.8 % (24.0-44.0); MEAN CORPUSCULAR VOLUME 63.9 fl (80.0-96.0); MONO # 0.3 10^3/uL (0.0-0.8); MONO % 6.3 % (0.0-5.0); NEUTROPHILS # 3.1 10^3/uL (1.5-8.5); NEUTROPHILS % 58.8 % (36.0-66.0); PLATELET COUNT, AUTOMATED 319 10^3/uL (150-450); RED BLOOD COUNT 3.13 10^6/uL (4.00-5.40); WHITE BLOOD COUNT 5.2 10^3/uL (4.0-10.0)
[2019-04-22 14:09] LABS: ALBUMIN 3.2 GM/DL (3.2-5.2); ALT/SGPT 10 U/L (12-78); BILIRUBIN,TOTAL 0.5 MG/DL (0.2-1.0); BLOOD UREA NITROGEN 8 MG/DL (7-18); C REACTIVE PROTEIN QUANTITATIV 0.79 MG/DL (0.00-0.30); CALCIUM LEVEL 8.2 MG/DL (8.8-10.2); CARBON DIOXIDE LEVEL 25 MEQ/L (21-32); CHLORIDE LEVEL 106 MEQ/L (98-107); CREATININE FOR GFR 0.64 MG/DL (0.55-1.30); GLOMERULAR FILTRATION RATE > 60.0 (>45); GLUCOSE, FASTING 89 MG/DL (70-100); POTASSIUM SERUM 4.3 MEQ/L (3.5-5.1); SODIUM LEVEL 138 MEQ/L (136-145); TOTAL PROTEIN 6.6 GM/DL (6.4-8.2)
[2019-04-22 14:31] LABS: ERYTHROCYTE SEDIMENTATION RATE 71 mm/hr (0-30)
[2019-04-23 10:59] LABS: HEPATITIS B SURFACE ANTIGEN NEGATIVE (NEGATIVE)
[2019-04-24 00:08] LABS: ANA (HEP2) Negative (.); CYCLIC CITRULLINATED PEPTIDE > 250 units (0-19); HEPATITIS B CORE ANTIBODY IGG Negative (Negative); SSA SJOGRENS A <0.2 AI (0.0-0.9); SSB SJOGRENS B <0.2 AI (0.0-0.9)
== END ==
LOC: M SFHCRHEU 09:49
PROVIDERS: ATTEND Internal Medicine
DX: M05.79 Rheumatoid arthritis with rheumatoid factor of multiple sites without organ or systems involvement (principal); R68.2 Dry mouth, unspecified

== ENCOUNTER 2019-04-26 09:46 | Outpatient (CLI) | payer OTHER ==
[~2019-04-26] VITALS: Ht 165.1 cm; Wt 95.0 kg
[~2019-04-26 09:46] MED LIST changes: +COLA100C5 PO; +FERR325T3 PO
[2019-04-26 09:54] VITALS: BP 135/80
[2019-04-26] MEDS ORDERED: IRON SUCROSE 100 MG in NS 100 ML OVER 1 HR IV ONE (11:00)
== END 2019-04-26 12:33 | disposition home or self-care (01) ==
LOC: M LAB 09:46 → M OPCLI4PV 09:46 → M MSPAV 09:50 → M LAB 12:33
PROVIDERS: ATTEND Internal Medicine
DX: D50.9 Iron deficiency anemia, unspecified (principal)
CPT/HCPCS: 96374; J1756

== ENCOUNTER 2019-04-28 09:32 | Outpatient (CLI) | payer OTHER ==
[~2019-04-28] VITALS: Ht 165.1 cm; Wt 93.5 kg
[2019-04-28 09:40] VITALS: BP 162/73
[2019-04-28 10:25] VITALS: BP 129/75
[2019-04-28] MEDS ORDERED: IRON SUCROSE 100 MG in NS 100 ML OVER 1 HR IV ONE (10:30)
[2019-04-28 11:05] VITALS: BP 149/80
[2019-04-28 11:20] VITALS: BP 150/91
== END 2019-04-28 11:20 | disposition home or self-care (01) ==
LOC: M INFU 09:32
PROVIDERS: ATTEND Internal Medicine
DX: D50.9 Iron deficiency anemia, unspecified (principal)
CPT/HCPCS: 96365; J1756

== ENCOUNTER 2019-04-29 09:22 | Outpatient (CLI) | payer OTHER ==
[~2019-04-29] VITALS: Ht 165.1 cm; Wt 93.5 kg
[2019-04-29 09:34] VITALS: BP 140/69
[2019-04-29] MEDS ORDERED: IRON SUCROSE 100 MG in NS 100 ML OVER 1 HR IV ONE (10:00)
[2019-04-29 10:30] VITALS: BP 135/77
[2019-04-29 11:28] VITALS: BP 146/71
== END 2019-04-29 11:30 | disposition home or self-care (01) ==
LOC: M INFU 09:22
PROVIDERS: ATTEND Internal Medicine
DX: D50.9 Iron deficiency anemia, unspecified (principal)
CPT/HCPCS: 96365; J1756

== ENCOUNTER 2019-04-30 09:12 | Outpatient (CLI) | payer OTHER ==
[~2019-04-30] VITALS: Ht 165.1 cm; Wt 93.5 kg
[2019-04-30 09:31] VITALS: BP 135/81
[2019-04-30] MEDS ORDERED: IRON SUCROSE 100 MG in NS 100 ML IV ONE (10:00)
[2019-04-30 10:56] VITALS: BP 132/77
== END 2019-04-30 11:00 | disposition home or self-care (01) ==
LOC: M INFU 09:12
PROVIDERS: ATTEND Internal Medicine
DX: D50.9 Iron deficiency anemia, unspecified (principal)
CPT/HCPCS: 96365; J1756

== ENCOUNTER 2019-05-01 09:11 | Outpatient (CLI) | payer OTHER ==
[~2019-05-01] VITALS: Ht 165.1 cm; Wt 93.5 kg
[2019-05-01 09:20] VITALS: BP 145/75
[2019-05-01] MEDS ORDERED: IRON SUCROSE 100 MG in NS 100 ML IV ONE (09:30)
[2019-05-01 09:55] VITALS: BP 122/71
[2019-05-01 10:45] VITALS: BP 132/72
== END 2019-05-01 10:45 | disposition home or self-care (01) ==
LOC: M INFU 09:11
PROVIDERS: ATTEND Internal Medicine
DX: D50.9 Iron deficiency anemia, unspecified (principal)
CPT/HCPCS: 96365; J1756

== ENCOUNTER 2019-05-02 09:42 | Outpatient (CLI) | payer OTHER ==
[~2019-05-02] VITALS: Ht 165.1 cm; Wt 93.5 kg
[2019-05-02 09:55] VITALS: BP 148/70
[2019-05-02] MEDS ORDERED: IRON SUCROSE 100 MG in NS 100 ML OVER 1 HR IV ONE (10:00)
[2019-05-02 11:10] VITALS: BP 134/77
== END 2019-05-02 11:10 | disposition home or self-care (01) ==
LOC: M INFU 09:42
PROVIDERS: ATTEND Internal Medicine
DX: D50.9 Iron deficiency anemia, unspecified (principal)
CPT/HCPCS: 96365; J1756

== ENCOUNTER → 2019-05-13 | Outpatient (REF) | payer OTHER ==
[2019-05-13 19:09] LABS: BASO % 0.3 % (0.0-1.0); EOS % 0.1 % (0.0-3.0); HEMATOCRIT 41.6 % (36.0-47.0); HEMOGLOBIN 12.1 g/dl (12.0-15.5); LYMPH % 13.2 % (24.0-44.0); MEAN CORPUSCULAR HEMOGLOBIN 24.3 pg (27.0-33.0); MEAN CORPUSCULAR HGB CONC 29.1 g/dl (32.0-36.5); MEAN CORPUSCULAR VOLUME 83.7 fl (80.0-96.0); MONO # 0.6 10^3/uL (0.0-0.8); MONO % 4.1 % (0.0-5.0); NEUTROPHILS # 12.5 10^3/uL (1.5-8.5); NEUTROPHILS % 81.5 % (36.0-66.0); PLATELET COUNT, AUTOMATED 367 10^3/uL (150-450); RED BLOOD COUNT 4.97 10^6/uL (4.00-5.40); WHITE BLOOD COUNT 15.3 10^3/uL (4.0-10.0)
[2019-05-13 19:12] LABS: ALBUMIN 3.8 GM/DL (3.2-5.2); ALT/SGPT 29 U/L (12-78); BILIRUBIN,TOTAL 0.3 MG/DL (0.2-1.0); BLOOD UREA NITROGEN 15 MG/DL (7-18); CALCIUM LEVEL 9.4 MG/DL (8.8-10.2); CARBON DIOXIDE LEVEL 30 MEQ/L (21-32); CHLORIDE LEVEL 100 MEQ/L (98-107); CHOLESTEROL LEVEL 200 MG/DL (<200); CREATININE FOR GFR 0.85 MG/DL (0.55-1.30); FERRITIN 51 NG/ML (8-252); GLOMERULAR FILTRATION RATE > 60.0 (>45); GLUCOSE, FASTING 111 MG/DL (70-100); HDL CHOLESTEROL 80 MG/DL (>40); IRON (FE) 45 UG/DL (50-170); LDL CHOLESTEROL 75 MG/DL (<100); NON-HDL-C 120 MG/DL; PERCENT SATURATION 10.8 % (13.2-45.0); POTASSIUM SERUM 4.6 MEQ/L (3.5-5.1); SODIUM LEVEL 137 MEQ/L (136-145); TOTAL IRON BINDING CAPACITY 416 UG/DL (250-450); TOTAL PROTEIN 7.3 GM/DL (6.4-8.2); TRIGLYCERIDES LEVEL 226 MG/DL (<150)
[2019-05-13 19:19] LABS: FOLATE 8.8 NG/ML; VITAMIN B12 LEVEL 321 PG/ML
[2019-05-13 19:26] LABS: HEMOGLOBIN A1c 5.3 %
[2019-05-13 19:43] LABS: ANISOCYTOSIS 3+; POIKILOCYTOSIS 1+; TARGET CELLS 1+
[2019-05-13 19:52] LABS: PLATELET ESTIMATE NORMAL (NORMAL)
== END ==
LOC: M LAB REF 17:46
PROVIDERS: ATTEND Nurse Practitioner Family
DX: F17.200 Nicotine dependence, unspecified, uncomplicated (principal); R06.09 Other forms of dyspnea; R73.01 Impaired fasting glucose; E78.49 Other hyperlipidemia; R05 Cough; D64.9 Anemia, unspecified

== ENCOUNTER → 2019-06-02 | Outpatient (REF) | payer OTHER ==
[2019-06-02 14:00] LABS: BASO % 0.2 % (0.0-1.0); EOS % 0.2 % (0.0-3.0); HEMATOCRIT 44.7 % (36.0-47.0); HEMOGLOBIN 13.7 g/dl (12.0-15.5); LYMPH # 1.8 10^3/uL (1.5-5.0); LYMPH % 13.6 % (24.0-44.0); MEAN CORPUSCULAR HEMOGLOBIN 26.8 pg (27.0-33.0); MEAN CORPUSCULAR HGB CONC 30.6 g/dl (32.0-36.5); MEAN CORPUSCULAR VOLUME 87.5 fl (80.0-96.0); MONO # 0.6 10^3/uL (0.0-0.8); MONO % 4.3 % (0.0-5.0); NEUTROPHILS # 10.5 10^3/uL (1.5-8.5); NEUTROPHILS % 80.8 % (36.0-66.0); PLATELET COUNT, AUTOMATED 247 10^3/uL (150-450); RED BLOOD COUNT 5.11 10^6/uL (4.00-5.40)
[2019-06-02 14:09] LABS: PERCENT SATURATION 32.6 % (13.2-45.0)
[2019-06-02 14:22] LABS: PLATELET ESTIMATE NORMAL (NORMAL)
[2019-06-02 14:23] LABS: ANISOCYTOSIS 2+; HYPOCHROMASIA 1+; POIKILOCYTOSIS 1+
[2019-06-02 14:24] LABS: MICROCYTOSIS 1+
== END ==
LOC: M LAB REF 13:19
PROVIDERS: ATTEND Nurse Practitioner Family
DX: D64.9 Anemia, unspecified (principal); D50.8 Other iron deficiency anemias; Z13.9 Encounter for screening, unspecified

== ENCOUNTER → 2019-06-11 | Outpatient (CLI) | payer OTHER ==
[2019-06-11 08:41] LABS: BASO % 0.2 % (0.0-1.0); EOS % 0.2 % (0.0-3.0); HEMATOCRIT 46.5 % (36.0-47.0); HEMOGLOBIN 14.8 g/dl (12.0-15.5); LYMPH # 1.4 10^3/uL (1.5-5.0); LYMPH % 10.9 % (24.0-44.0); MEAN CORPUSCULAR HEMOGLOBIN 27.6 pg (27.0-33.0); MEAN CORPUSCULAR HGB CONC 31.8 g/dl (32.0-36.5); MEAN CORPUSCULAR VOLUME 86.8 fl (80.0-96.0); MONO # 0.6 10^3/uL (0.0-0.8); MONO % 4.9 % (0.0-5.0); NEUTROPHILS # 10.7 10^3/uL (1.5-8.5); NEUTROPHILS % 83.1 % (36.0-66.0); PLATELET COUNT, AUTOMATED 231 10^3/uL (150-450); RED BLOOD COUNT 5.36 10^6/uL (4.00-5.40); WHITE BLOOD COUNT 12.9 10^3/uL (4.0-10.0)
[2019-06-11 09:09] LABS: ALBUMIN 3.8 GM/DL (3.2-5.2); ALT/SGPT 33 U/L (12-78); ANISOCYTOSIS 2+; BILIRUBIN,TOTAL 0.4 MG/DL (0.2-1.0); BLOOD UREA NITROGEN 10 MG/DL (7-18); CALCIUM LEVEL 9.5 MG/DL (8.8-10.2); CARBON DIOXIDE LEVEL 23 MEQ/L (21-32); CHLORIDE LEVEL 103 MEQ/L (98-107); CREATININE FOR GFR 0.83 MG/DL (0.55-1.30); GLOMERULAR FILTRATION RATE > 60.0 (>45); GLUCOSE, FASTING 113 MG/DL (70-100); PLATELET ESTIMATE NORMAL (NORMAL); POTASSIUM SERUM 4.1 MEQ/L (3.5-5.1); SODIUM LEVEL 137 MEQ/L (136-145); TOTAL PROTEIN 7.3 GM/DL (6.4-8.2)
[2019-06-11 09:33] LABS: ERYTHROCYTE SEDIMENTATION RATE 5 mm/hr (0-30)
--- NOTE | 2019-06-11 09:48 | REP ---
BILATERAL KNEE SERIES: Five views of each knee are performed. No fracture or dislocation is seen bilaterally. On the right, there is mild medial and lateral joint space narrowing with subchondral sclerosis. There is slight lateral patellofemoral joint space narrowing with subchondral sclerosis, and a small spur is noted of the lateral patellar facet. There is not a significant joint effusion. Similar findings are seen on the left with medial and lateral joint space narrowing of a mild degree and subchondral sclerosis. There is mild spurring of the lateral femoral condyle and tibial plateau. There is mild lateral patellofemoral joint space narrowing and subchondral sclerosis. There does not appear to be a significant joint effusion. IMPRESSION: Mild bilateral degenerative changes. Electronically Signed by Agus Mitchell MD 06/11/2019 03:55 P
== END ==
LOC: M LAB 07:56
PROVIDERS: ATTEND Internal Medicine
DX: M05.79 Rheumatoid arthritis with rheumatoid factor of multiple sites without organ or systems involvement (principal); M25.561 Pain in right knee; M25.562 Pain in left knee

== ENCOUNTER → 2019-07-25 | Outpatient (CLI) | payer OTHER ==
[~2019-07-25] MED LIST changes: +OMEP-218 PO; +VENTAER INH
[2019-07-25 09:16] LABS: BASO % 0.3 % (0.0-1.0); EOS # 0.1 10^3/uL (0.0-0.5); EOS % 0.6 % (0.0-3.0); HEMATOCRIT 44.7 % (36.0-47.0); HEMOGLOBIN 14.9 g/dl (12.0-15.5); LYMPH # 1.6 10^3/uL (1.5-5.0); LYMPH % 15.7 % (24.0-44.0); MEAN CORPUSCULAR HEMOGLOBIN 30.7 pg (27.0-33.0); MEAN CORPUSCULAR HGB CONC 33.3 g/dl (32.0-36.5); MEAN CORPUSCULAR VOLUME 92.2 fl (80.0-96.0); MONO # 0.7 10^3/uL (0.0-0.8); NEUTROPHILS # 7.5 10^3/uL (1.5-8.5); NEUTROPHILS % 75.8 % (36.0-66.0); PLATELET COUNT, AUTOMATED 232 10^3/uL (150-450); RED BLOOD COUNT 4.85 10^6/uL (4.00-5.40); WHITE BLOOD COUNT 9.9 10^3/uL (4.0-10.0)
[2019-07-25 09:46] LABS: ALBUMIN 3.9 GM/DL (3.2-5.2); ALT/SGPT 42 U/L (12-78); BILIRUBIN,TOTAL 0.6 MG/DL (0.2-1.0); BLOOD UREA NITROGEN 11 MG/DL (7-18); C REACTIVE PROTEIN QUANTITATIV 1.11 MG/DL (0.00-0.30); CALCIUM LEVEL 8.7 MG/DL (8.8-10.2); CARBON DIOXIDE LEVEL 22 MEQ/L (21-32); CHLORIDE LEVEL 105 MEQ/L (98-107); GLOMERULAR FILTRATION RATE > 60.0 (>45); GLUCOSE, FASTING 155 MG/DL (70-100); POTASSIUM SERUM 3.8 MEQ/L (3.5-5.1); SODIUM LEVEL 138 MEQ/L (136-145); URIC ACID 5.6 MG/DL (2.6-6.0)
[2019-07-25 09:50] LABS: ERYTHROCYTE SEDIMENTATION RATE 12 mm/hr (0-30)
== END ==
LOC: M LAB 08:45
PROVIDERS: ATTEND Internal Medicine
DX: M05.79 Rheumatoid arthritis with rheumatoid factor of multiple sites without organ or systems involvement (principal)

== ENCOUNTER → 2019-07-25 | Outpatient (CLI) | payer OTHER ==
--- NOTE | 2019-07-25 10:57 | REP ---
REASON: Muscular strain. Flexion bending view was also obtained. Six views of the lumbar spine show advanced disc space narrowing and anterior lipping at every level. Posterior osteophytic region is also seen at every level. Degenerative facet joint changes are seen bilaterally at every level but particularly at L4-5 and L5-S1. The vertebral body height and alignment is within normal limits, however, there is straightening of the lumbar spine. There is endplate sclerosis at the L1-2, L2-3, and L4-5 levels. There is partial syndesmophyte formation seen bilaterally at every level heaviest at the L1-2 and L2-3 levels on the left. The bending view shows no instability. IMPRESSION: Chronic changes as described above. Electronically Signed by Kelton Barrett DO 07/25/2019 12:07 P
== END ==
LOC: M RAD 08:50
PROVIDERS: ATTEND Nurse Practitioner Family
DX: S39.012A Strain of muscle, fascia and tendon of lower back, initial encounter (principal); Y93.9 Activity, unspecified; X58.XXXA Exposure to other specified factors, initial encounter; Y92.89 Other specified places as the place of occurrence of the external cause; Y99.9 Unspecified external cause status

== ENCOUNTER → 2019-08-13 | Outpatient (REF) | payer OTHER ==
[2019-08-13 11:48] LABS: APPEARANCE, URINE CLEAR (CLEAR); BACTERIA, URINE AUTO 1+ (NEGATIVE); BILIRUBIN, URINE AUTO NEGATIVE (NEGATIVE); BLOOD, URINE BLOOD 1+ (NEGATIVE); COLOR, URINE YELLOW (YELLOW); GLUCOSE, URINE (UA) AUTO NEGATIVE (NEGATIVE); KETONE, URINE AUTO NEGATIVE (NEGATIVE); LEUKOCYTE ESTERASE, URINE AUTO NEGATIVE (NEGATIVE); NITRITE, URINE AUTO NEGATIVE (NEGATIVE); PROTEIN, URINE AUTO NEGATIVE (NEGATIVE); RBC, URINE AUTO 0 /HPF (0-3); SPECIFIC GRAVITY URINE AUTO 1.009 (1.002-1.035); SQUAMOUS EPITHELIAL CELL UR AU 2 /HPF (0-6); UROBILINOGEN, URINE AUTO 0.2 mg/dL (0.0-2.0); WBC, URINE AUTO 1 /HPF (0-3)
[2019-08-13 11:50] LABS: BASO # 0.1 10^3/uL (0.0-0.2); BASO % 0.3 % (0.0-1.0); EOS % 0.1 % (0.0-3.0); HEMOGLOBIN 15.2 g/dl (12.0-15.5); LYMPH % 13.3 % (24.0-44.0); MEAN CORPUSCULAR HEMOGLOBIN 30.8 pg (27.0-33.0); MEAN CORPUSCULAR VOLUME 93.1 fl (80.0-96.0); MONO # 0.7 10^3/uL (0.0-0.8); MONO % 4.4 % (0.0-5.0); NEUTROPHILS # 12.4 10^3/uL (1.5-8.5); NEUTROPHILS % 81.1 % (36.0-66.0); PLATELET COUNT, AUTOMATED 296 10^3/uL (150-450); RED BLOOD COUNT 4.94 10^6/uL (4.00-5.40); WHITE BLOOD COUNT 15.3 10^3/uL (4.0-10.0)
[2019-08-13 12:08] LABS: FOLATE > 24.0 NG/ML; TOTAL 25(OH) VITAMIN D 8.8 NG/ML (30.0-100.0); VITAMIN B12 LEVEL 375 PG/ML
[2019-08-13 12:17] LABS: ALBUMIN 4.3 GM/DL (3.2-5.2); ALT/SGPT 36 U/L (12-78); BILIRUBIN,TOTAL 0.6 MG/DL (0.2-1.0); BLOOD UREA NITROGEN 8 MG/DL (7-18); CALCIUM LEVEL 9.6 MG/DL (8.8-10.2); CARBON DIOXIDE LEVEL 23 MEQ/L (21-32); CHLORIDE LEVEL 102 MEQ/L (98-107); CHOLESTEROL LEVEL 279 MG/DL (<200); CHOLESTEROL RISK RATIO 5.166 (<5); CREATININE FOR GFR 0.84 MG/DL (0.55-1.30); FERRITIN 91 NG/ML (8-252); FREE T4 1.24 NG/DL (0.76-1.46); GLOMERULAR FILTRATION RATE > 60.0 (>45); GLUCOSE, FASTING 151 MG/DL (70-100); HDL CHOLESTEROL 54 MG/DL (>40); IRON (FE) 71 UG/DL (50-170); NON-HDL-C 225 MG/DL; PERCENT SATURATION 19.5 % (13.2-45.0); POTASSIUM SERUM 4.3 MEQ/L (3.5-5.1); SODIUM LEVEL 135 MEQ/L (136-145); TOTAL IRON BINDING CAPACITY 365 UG/DL (250-450); TOTAL PROTEIN 7.5 GM/DL (6.4-8.2); TRIGLYCERIDES LEVEL 482 MG/DL (<150)
== END ==
LOC: M LAB REF 11:32
PROVIDERS: ATTEND Nurse Practitioner Family
DX: N64.4 Mastodynia (principal); R05 Cough; S39.012A Strain of muscle, fascia and tendon of lower back, initial encounter; D50.8 Other iron deficiency anemias; Z13.9 Encounter for screening, unspecified; K21.9 Gastro-esophageal reflux disease without esophagitis; D64.9 Anemia, unspecified; F17.200 Nicotine dependence, unspecified, uncomplicated; R06.09 Other forms of dyspnea; E78.49 Other hyperlipidemia; W18.30XA Fall on same level, unspecified, initial encounter; Y92.9 Unspecified place or not applicable

== ENCOUNTER → 2019-08-15 | Outpatient (CLI) | payer OTHER ==
--- NOTE | 2019-08-15 09:59 | REP ---
REASON FOR EXAM: Dyspnea on exertion. COMPARISON: 04/18/2019, the latest prior. FINDINGS: The superior mediastinal structures are midline. The cardiac silhouette is unremarkable in size, shape, and position. The diaphragmatic surfaces of the lungs are regular, and the costophrenic angles are clear. The pulmonary estrada are clear. The imaged osseous structures are intact. IMPRESSION: There is no acute cardiopulmonary disease. No significant change from the prior exam. Note is again made of a fairly large hiatal hernia. Electronically Signed by Kelton Barrett DO 08/15/2019 10:47 A
== END ==
LOC: M RAD 09:22
PROVIDERS: ATTEND Nurse Practitioner Family
DX: R05 Cough (principal); R06.09 Other forms of dyspnea; K44.9 Diaphragmatic hernia without obstruction or gangrene

== ENCOUNTER → 2019-12-02 | Outpatient (REF) | payer OTHER ==
[2019-12-02 19:19] LABS: BASO # 0.1 10^3/uL (0.0-0.2); BASO % 0.7 % (0.0-1.0); EOS # 0.1 10^3/uL (0.0-0.5); EOS % 1.7 % (0.0-3.0); HEMATOCRIT 47.7 % (36.0-47.0); HEMOGLOBIN 16.3 g/dl (12.0-15.5); LYMPH # 2.6 10^3/uL (1.5-5.0); LYMPH % 33.9 % (24.0-44.0); MEAN CORPUSCULAR HEMOGLOBIN 31.7 pg (27.0-33.0); MEAN CORPUSCULAR HGB CONC 34.2 g/dl (32.0-36.5); MEAN CORPUSCULAR VOLUME 92.8 fl (80.0-96.0); MONO # 0.7 10^3/uL (0.0-0.8); MONO % 9.2 % (0.0-5.0); NEUTROPHILS # 4.1 10^3/uL (1.5-8.5); NEUTROPHILS % 54.2 % (36.0-66.0); PLATELET COUNT, AUTOMATED 225 10^3/uL (150-450); RED BLOOD COUNT 5.14 10^6/uL (4.00-5.40); WHITE BLOOD COUNT 7.6 10^3/uL (4.0-10.0)
[2019-12-02 19:34] LABS: ALBUMIN 4.1 GM/DL (3.2-5.2); ALT/SGPT 37 U/L (12-78); BLOOD UREA NITROGEN 12 MG/DL (7-18); CALCIUM LEVEL 9.3 MG/DL (8.8-10.2); CARBON DIOXIDE LEVEL 25 MEQ/L (21-32); CHLORIDE LEVEL 106 MEQ/L (98-107); CHOLESTEROL LEVEL 256 MG/DL (<200); CHOLESTEROL RISK RATIO 6.736 (<5); CREATININE FOR GFR 0.83 MG/DL (0.55-1.30); FERRITIN 111 NG/ML (8-252); FOLATE > 24.0 NG/ML; GLOMERULAR FILTRATION RATE > 60.0 (>45); GLUCOSE, FASTING 106 MG/DL (70-100); HDL CHOLESTEROL 38 MG/DL (>40); IRON (FE) 110 UG/DL (50-170); NON-HDL-C 218 MG/DL; POTASSIUM SERUM 4.1 MEQ/L (3.5-5.1); SODIUM LEVEL 136 MEQ/L (136-145); TOTAL PROTEIN 7.2 GM/DL (6.4-8.2); TRIGLYCERIDES LEVEL 447 MG/DL (<150); VITAMIN B12 LEVEL 407 PG/ML
[2019-12-02 19:44] LABS: HEMOGLOBIN A1c 6.6 %
== END ==
LOC: M LAB REF 18:03
PROVIDERS: ATTEND Nurse Practitioner Family
DX: Z13.9 Encounter for screening, unspecified (principal); N64.4 Mastodynia; D64.9 Anemia, unspecified; R73.01 Impaired fasting glucose; F34.1 Dysthymic disorder; E78.49 Other hyperlipidemia

== ENCOUNTER → 2020-02-17 | Outpatient (CLI) | payer OTHER ==
[2020-02-17 12:43] LABS: BASO % 0.3 % (0.0-1.0); EOS # 0.1 10^3/uL (0.0-0.5); EOS % 1.6 % (0.0-3.0); HEMATOCRIT 43.5 % (36.0-47.0); HEMOGLOBIN 14.6 g/dl (12.0-15.5); LYMPH # 2.6 10^3/uL (1.5-5.0); LYMPH % 29.7 % (24.0-44.0); MEAN CORPUSCULAR HEMOGLOBIN 30.9 pg (27.0-33.0); MEAN CORPUSCULAR HGB CONC 33.6 g/dl (32.0-36.5); MEAN CORPUSCULAR VOLUME 92.2 fl (80.0-96.0); MONO # 0.5 10^3/uL (0.0-0.8); NEUTROPHILS # 5.5 10^3/uL (1.5-8.5); NEUTROPHILS % 62.1 % (36.0-66.0); PLATELET COUNT, AUTOMATED 231 10^3/uL (150-450); RED BLOOD COUNT 4.72 10^6/uL (4.00-5.40); WHITE BLOOD COUNT 8.9 10^3/uL (4.0-10.0)
[2020-02-17 13:23] LABS: ALBUMIN 3.9 GM/DL (3.2-5.2); ALT/SGPT 31 U/L (12-78); BILIRUBIN,TOTAL 0.5 MG/DL (0.2-1.0); BLOOD UREA NITROGEN 11 MG/DL (7-18); CALCIUM LEVEL 9.2 MG/DL (8.8-10.2); CARBON DIOXIDE LEVEL 25 MEQ/L (21-32); CHLORIDE LEVEL 106 MEQ/L (98-107); CREATININE FOR GFR 0.89 MG/DL (0.55-1.30); GLOMERULAR FILTRATION RATE > 60.0 (>45); GLUCOSE, FASTING 155 MG/DL (70-100); POTASSIUM SERUM 4.2 MEQ/L (3.5-5.1); SODIUM LEVEL 138 MEQ/L (136-145); TOTAL PROTEIN 6.7 GM/DL (6.4-8.2)
[2020-02-17 13:59] LABS: ERYTHROCYTE SEDIMENTATION RATE 10 mm/hr (0-30)
== END ==
LOC: M LAB 11:56
PROVIDERS: ATTEND Internal Medicine
DX: M06.9 Rheumatoid arthritis, unspecified (principal)

== ENCOUNTER → 2020-04-19 | Outpatient (REF) | payer OTHER ==
[2020-04-19 12:23] LABS: BASO # 0.1 10^3/uL (0.0-0.2); BASO % 0.7 % (0.0-1.0); EOS # 0.2 10^3/uL (0.0-0.5); HEMATOCRIT 43.3 % (36.0-47.0); HEMOGLOBIN 14.7 g/dl (12.0-15.5); LYMPH # 2.5 10^3/uL (1.5-5.0); LYMPH % 28.9 % (24.0-44.0); MEAN CORPUSCULAR HEMOGLOBIN 31.5 pg (27.0-33.0); MEAN CORPUSCULAR HGB CONC 33.9 g/dl (32.0-36.5); MEAN CORPUSCULAR VOLUME 92.9 fl (80.0-96.0); MONO # 0.6 10^3/uL (0.0-0.8); MONO % 6.7 % (0.0-5.0); NEUTROPHILS # 5.3 10^3/uL (1.5-8.5); NEUTROPHILS % 61.4 % (36.0-66.0); PLATELET COUNT, AUTOMATED 212 10^3/uL (150-450); RED BLOOD COUNT 4.66 10^6/uL (4.00-5.40); WHITE BLOOD COUNT 8.7 10^3/uL (4.0-10.0)
[2020-04-19 13:03] LABS: ALBUMIN 3.9 GM/DL (3.2-5.2); ALT/SGPT 41 U/L (12-78); BLOOD UREA NITROGEN 12 MG/DL (7-18); CARBON DIOXIDE LEVEL 24 MEQ/L (21-32); CHLORIDE LEVEL 107 MEQ/L (98-107); CHOLESTEROL LEVEL 146 MG/DL (<200); CHOLESTEROL RISK RATIO 2.754 (<5); CREATININE FOR GFR 0.82 MG/DL (0.55-1.30); GLOMERULAR FILTRATION RATE > 60.0 (>45); GLUCOSE, FASTING 137 MG/DL (70-100); HDL CHOLESTEROL 53 MG/DL (>40); LDL CHOLESTEROL 39 MG/DL (<100); NON-HDL-C 93 MG/DL; POTASSIUM SERUM 4.3 MEQ/L (3.5-5.1); SODIUM LEVEL 140 MEQ/L (136-145); TOTAL PROTEIN 6.5 GM/DL (6.4-8.2); TRIGLYCERIDES LEVEL 268 MG/DL (<150)
[2020-04-19 13:14] LABS: TOTAL 25(OH) VITAMIN D 13.4 NG/ML (30.0-100.0)
[2020-04-19 15:15] LABS: HEMOGLOBIN A1c 6.7 %
== END ==
LOC: M LAB REF 11:14
PROVIDERS: ATTEND Nurse Practitioner Family
DX: E78.2 Mixed hyperlipidemia (principal); R73.9 Hyperglycemia, unspecified; Z13.9 Encounter for screening, unspecified; M05.8 Other rheumatoid arthritis with rheumatoid factor

== ENCOUNTER → 2020-05-17 | Outpatient (CLI) | payer OTHER ==
[2020-05-17 13:09] LABS: BASO % 0.3 % (0.0-1.0); EOS # 0.2 10^3/uL (0.0-0.5); EOS % 1.7 % (0.0-3.0); HEMATOCRIT 44.1 % (36.0-47.0); HEMOGLOBIN 14.9 g/dl (12.0-15.5); LYMPH # 3.8 10^3/uL (1.5-5.0); LYMPH % 32.8 % (24.0-44.0); MEAN CORPUSCULAR HEMOGLOBIN 31.6 pg (27.0-33.0); MEAN CORPUSCULAR HGB CONC 33.8 g/dl (32.0-36.5); MEAN CORPUSCULAR VOLUME 93.6 fl (80.0-96.0); MONO # 0.8 10^3/uL (0.0-0.8); NEUTROPHILS # 6.6 10^3/uL (1.5-8.5); NEUTROPHILS % 57.6 % (36.0-66.0); PLATELET COUNT, AUTOMATED 259 10^3/uL (150-450); RED BLOOD COUNT 4.71 10^6/uL (4.00-5.40); WHITE BLOOD COUNT 11.4 10^3/uL (4.0-10.0)
[2020-05-17 14:18] LABS: ERYTHROCYTE SEDIMENTATION RATE 13 mm/hr (0-30)
[2020-05-17 14:20] LABS: ALBUMIN 3.8 GM/DL (3.2-5.2); ALT/SGPT 47 U/L (12-78); BILIRUBIN,TOTAL 0.7 MG/DL (0.2-1.0); BLOOD UREA NITROGEN 11 MG/DL (7-18); CALCIUM LEVEL 9.5 MG/DL (8.8-10.2); CARBON DIOXIDE LEVEL 24 MEQ/L (21-32); CHLORIDE LEVEL 106 MEQ/L (98-107); GLOMERULAR FILTRATION RATE > 60.0 (>45); GLUCOSE, FASTING 118 MG/DL (70-100); POTASSIUM SERUM 4.1 MEQ/L (3.5-5.1); SODIUM LEVEL 139 MEQ/L (136-145)
== END ==
LOC: M LAB 12:05
PROVIDERS: ATTEND Internal Medicine
DX: M05.79 Rheumatoid arthritis with rheumatoid factor of multiple sites without organ or systems involvement (principal)

== ENCOUNTER → 2020-08-31 | Outpatient (CLI) | payer OTHER ==
[2020-08-31 11:47] LABS: BASO % 0.4 % (0.0-1.0); EOS # 0.1 10^3/uL (0.0-0.5); EOS % 1.1 % (0.0-3.0); HEMATOCRIT 47.1 % (36.0-47.0); HEMOGLOBIN 15.4 g/dl (12.0-15.5); MEAN CORPUSCULAR HEMOGLOBIN 30.9 pg (27.0-33.0); MEAN CORPUSCULAR HGB CONC 32.7 g/dl (32.0-36.5); MEAN CORPUSCULAR VOLUME 94.6 fl (80.0-96.0); MONO # 0.7 10^3/uL (0.0-0.8); MONO % 6.6 % (2.0-8.0); NEUTROPHILS # 6.1 10^3/uL (1.5-8.5); NEUTROPHILS % 61.3 % (36.0-66.0); PLATELET COUNT, AUTOMATED 208 10^3/uL (150-450); RED BLOOD COUNT 4.98 10^6/uL (4.00-5.40); WHITE BLOOD COUNT 9.9 10^3/uL (4.0-10.0)
[2020-08-31 12:16] LABS: ERYTHROCYTE SEDIMENTATION RATE 4 mm/hr (0-30)
[2020-08-31 12:20] LABS: ALT/SGPT 46 U/L (12-78); BILIRUBIN,TOTAL 0.5 MG/DL (0.2-1.0); BLOOD UREA NITROGEN 10 MG/DL (7-18); CALCIUM LEVEL 9.6 MG/DL (8.8-10.2); CARBON DIOXIDE LEVEL 25 MEQ/L (21-32); CHLORIDE LEVEL 106 MEQ/L (98-107); CREATININE FOR GFR 0.79 MG/DL (0.55-1.30); GLOMERULAR FILTRATION RATE > 60.0 (>45); GLUCOSE, FASTING 127 MG/DL (70-100); POTASSIUM SERUM 4.4 MEQ/L (3.5-5.1); SODIUM LEVEL 138 MEQ/L (136-145); TOTAL PROTEIN 7.1 GM/DL (6.4-8.2)
== END ==
LOC: M LAB 09:44
PROVIDERS: ATTEND Internal Medicine
DX: M05.79 Rheumatoid arthritis with rheumatoid factor of multiple sites without organ or systems involvement (principal)

== ENCOUNTER → 2020-12-06 | Outpatient (CLI) | payer MEDICARE, OTHER ==
[2020-12-06 15:45] LABS: BASO % 0.4 % (0.0-1.0); EOS # 0.1 10^3/uL (0.0-0.5); EOS % 1.6 % (0.0-3.0); HEMATOCRIT 41.3 % (36.0-47.0); HEMOGLOBIN 14.2 g/dl (12.0-15.5); LYMPH # 2.7 10^3/uL (1.5-5.0); LYMPH % 33.4 % (24.0-44.0); MEAN CORPUSCULAR HEMOGLOBIN 32.1 pg (27.0-33.0); MEAN CORPUSCULAR HGB CONC 34.4 g/dl (32.0-36.5); MEAN CORPUSCULAR VOLUME 93.2 fl (80.0-96.0); MONO # 0.6 10^3/uL (0.0-0.8); MONO % 6.9 % (2.0-8.0); NEUTROPHILS # 4.6 10^3/uL (1.5-8.5); NEUTROPHILS % 57.5 % (36.0-66.0); PLATELET COUNT, AUTOMATED 201 10^3/uL (150-450); RED BLOOD COUNT 4.43 10^6/uL (4.00-5.40)
[2020-12-06 16:12] LABS: ALBUMIN 3.6 GM/DL (3.2-5.2); ALT/SGPT 39 U/L (12-78); BILIRUBIN,TOTAL 0.9 MG/DL (0.2-1.0); BLOOD UREA NITROGEN 12 MG/DL (7-18); CALCIUM LEVEL 9.1 MG/DL (8.8-10.2); CARBON DIOXIDE LEVEL 24 MEQ/L (21-32); CHLORIDE LEVEL 108 MEQ/L (98-107); CREATININE FOR GFR 0.77 MG/DL (0.55-1.30); GLOMERULAR FILTRATION RATE > 60.0 (>45); GLUCOSE, FASTING 98 MG/DL (70-100); POTASSIUM SERUM 3.9 MEQ/L (3.5-5.1); SODIUM LEVEL 140 MEQ/L (136-145); TOTAL PROTEIN 6.3 GM/DL (6.4-8.2)
[2020-12-06 16:40] LABS: ERYTHROCYTE SEDIMENTATION RATE 3 mm/hr (0-30)
== END ==
LOC: M LAB 13:34
PROVIDERS: ATTEND Internal Medicine Rheumatology
DX: M05.79 Rheumatoid arthritis with rheumatoid factor of multiple sites without organ or systems involvement (principal)

== ENCOUNTER → 2021-01-28 | Outpatient (CLI) | payer MEDICARE ==
[~2021-01-28] MED LIST changes: -IBUP200T45 PO; +IBUP200T46 PO
--- NOTE | 2021-01-30 08:16 | REP ---
INDICATION: ACUTE UPPER RESPIRATORY INFECTION, UNSPECIFIED COMPARISON: 08/15/2019 TECHNIQUE: PA and lateral. FINDINGS: The mediastinum and cardiac silhouette are normal. The lung estrada are clear and without acute consolidation, effusion, or pneumothorax. The skeletal structures are intact and normal. IMPRESSION: No acute cardiopulmonary process. <Electronically signed by Sumit Simons > 01/30/21 [id number]
== END ==
LOC: M RAD 14:29
PROVIDERS: ATTEND Pediatrics
DX: J06.9 Acute upper respiratory infection, unspecified (principal)

== ENCOUNTER → 2021-06-06 | Outpatient (CLI) | payer MEDICARE ==
[~2021-06-06] MED LIST changes: +OMEP-173 PO; -OMEP-218 PO
[2021-06-06 11:21] LABS: BASO % 0.4 % (0.0-1.0); EOS # 0.2 10^3/uL (0.0-0.5); HEMATOCRIT 42.9 % (36.0-47.0); HEMOGLOBIN 14.8 g/dl (12.0-15.5); LYMPH # 2.4 10^3/uL (1.5-5.0); LYMPH % 24.9 % (24.0-44.0); MEAN CORPUSCULAR HEMOGLOBIN 31.3 pg (27.0-33.0); MEAN CORPUSCULAR HGB CONC 34.5 g/dl (32.0-36.5); MEAN CORPUSCULAR VOLUME 90.7 fl (80.0-96.0); MONO # 0.5 10^3/uL (0.0-0.8); MONO % 4.9 % (2.0-8.0); NEUTROPHILS # 6.5 10^3/uL (1.5-8.5); NEUTROPHILS % 67.3 % (36.0-66.0); PLATELET COUNT, AUTOMATED 248 10^3/uL (150-450); RED BLOOD COUNT 4.73 10^6/uL (4.00-5.40); WHITE BLOOD COUNT 9.7 10^3/uL (4.0-10.0)
[2021-06-06 11:40] LABS: ERYTHROCYTE SEDIMENTATION RATE 15 mm/hr (0-30)
[2021-06-06 12:02] LABS: ALBUMIN 3.7 GM/DL (3.2-5.2); ALT/SGPT 38 U/L (12-78); BILIRUBIN,TOTAL 0.9 MG/DL (0.2-1.0); BLOOD UREA NITROGEN 8 MG/DL (7-18); C REACTIVE PROTEIN QUANTITATIV 0.41 MG/DL (0.00-0.30); CALCIUM LEVEL 9.3 MG/DL (8.8-10.2); CARBON DIOXIDE LEVEL 23 MEQ/L (21-32); CHLORIDE LEVEL 104 MEQ/L (98-107); CREATININE FOR GFR 0.86 MG/DL (0.55-1.30); GLOMERULAR FILTRATION RATE > 60.0 (>45); GLUCOSE, FASTING 220 MG/DL (70-100); POTASSIUM SERUM 4.4 MEQ/L (3.5-5.1); SODIUM LEVEL 135 MEQ/L (136-145); TOTAL PROTEIN 6.8 GM/DL (6.4-8.2)
== END ==
LOC: M LAB 10:52
PROVIDERS: ATTEND Internal Medicine Rheumatology
DX: Z79.899 Other long term (current) drug therapy (principal)

== ENCOUNTER → 2021-09-26 | Outpatient (CLI) | payer MEDICARE ==
[2021-09-26 08:20] LABS: BASO % 0.4 % (0.0-1.0); EOS # 0.1 10^3/uL (0.0-0.5); EOS % 1.6 % (0.0-3.0); HEMATOCRIT 42.7 % (36.0-47.0); HEMOGLOBIN 14.5 g/dl (12.0-15.5); LYMPH % 27.8 % (24.0-44.0); MEAN CORPUSCULAR VOLUME 91.2 fl (80.0-96.0); MONO # 0.4 10^3/uL (0.0-0.8); MONO % 5.9 % (2.0-8.0); NEUTROPHILS # 4.7 10^3/uL (1.5-8.5); PLATELET COUNT, AUTOMATED 190 10^3/uL (150-450); RED BLOOD COUNT 4.68 10^6/uL (4.00-5.40); WHITE BLOOD COUNT 7.4 10^3/uL (4.0-10.0)
[2021-09-26 08:48] LABS: ALBUMIN 3.5 GM/DL (3.2-5.2); ALT/SGPT 41 U/L (12-78); BLOOD UREA NITROGEN 12 MG/DL (7-18); CALCIUM LEVEL 9.6 MG/DL (8.8-10.2); CARBON DIOXIDE LEVEL 22 MEQ/L (21-32); CHLORIDE LEVEL 106 MEQ/L (98-107); CREATININE FOR GFR 0.78 MG/DL (0.55-1.30); GLOMERULAR FILTRATION RATE > 60.0 (>45); GLUCOSE, FASTING 175 MG/DL (70-100); SODIUM LEVEL 138 MEQ/L (136-145); TOTAL PROTEIN 6.6 GM/DL (6.4-8.2)
[2021-09-26 08:58] LABS: ERYTHROCYTE SEDIMENTATION RATE 7 mm/hr (0-30)
== END ==
LOC: M LAB 07:45
PROVIDERS: ATTEND Internal Medicine Rheumatology
DX: M05.79 Rheumatoid arthritis with rheumatoid factor of multiple sites without organ or systems involvement (principal); B37.0 Candidal stomatitis; Z79.899 Other long term (current) drug therapy; M17.0 Bilateral primary osteoarthritis of knee

== ENCOUNTER → 2022-01-18 | Outpatient (REF) | payer MEDICARE ==
[2022-01-18 14:15] LABS: HEMATOCRIT 43.2 % (36.0-47.0); HEMOGLOBIN 14.3 g/dl (12.0-15.5); MEAN CORPUSCULAR HEMOGLOBIN 31.9 pg (27.0-33.0); MEAN CORPUSCULAR HGB CONC 33.1 g/dl (32.0-36.5); MEAN CORPUSCULAR VOLUME 96.4 fl (80.0-96.0); PLATELET COUNT, AUTOMATED 203 10^3/uL (150-450); RED BLOOD COUNT 4.48 10^6/uL (4.00-5.40); WHITE BLOOD COUNT 7.1 10^3/uL (4.0-10.0)
[2022-01-18 14:35] LABS: ALBUMIN 3.5 GM/DL (3.2-5.2); ALT/SGPT 36 U/L (12-78); BILIRUBIN,TOTAL 0.8 MG/DL (0.2-1.0); BLOOD UREA NITROGEN 9 MG/DL (7-18); CALCIUM LEVEL 8.6 MG/DL (8.8-10.2); CARBON DIOXIDE LEVEL 23 MEQ/L (21-32); CHLORIDE LEVEL 108 MEQ/L (98-107); CHOLESTEROL LEVEL 147 MG/DL (<200); CHOLESTEROL RISK RATIO 3.062 (<5); CREATININE FOR GFR 0.87 MG/DL (0.55-1.30); GLOMERULAR FILTRATION RATE > 60.0 (>45); GLUCOSE, FASTING 158 MG/DL (70-100); HDL CHOLESTEROL 48 MG/DL (>40); LDL CHOLESTEROL 51 MG/DL (<100); NON-HDL-C 99 MG/DL; POTASSIUM SERUM 4.4 MEQ/L (3.5-5.1); SODIUM LEVEL 138 MEQ/L (136-145); TOTAL PROTEIN 6.4 GM/DL (6.4-8.2); TRIGLYCERIDES LEVEL 241 MG/DL (<150)
[2022-01-18 14:41] LABS: HEMOGLOBIN A1c 6.8 %
[2022-01-18 15:12] LABS: TOTAL 25(OH) VITAMIN D 22.5 NG/ML (30.0-100.0)
== END ==
LOC: M LAB REF 12:34
PROVIDERS: ATTEND Nurse Practitioner Family
DX: Z79.899 Other long term (current) drug therapy (principal); E66.3 Overweight

== ENCOUNTER → 2022-01-23 | Outpatient (CLI) | payer MEDICARE ==
[2022-01-23 09:13] LABS: BASO # 0.1 10^3/uL (0.0-0.2); BASO % 0.5 % (0.0-1.0); EOS # 0.2 10^3/uL (0.0-0.5); EOS % 1.7 % (0.0-3.0); HEMATOCRIT 41.2 % (36.0-47.0); HEMOGLOBIN 13.9 g/dl (12.0-15.5); LYMPH # 2.1 10^3/uL (1.5-5.0); LYMPH % 23.1 % (24.0-44.0); MEAN CORPUSCULAR HGB CONC 33.7 g/dl (32.0-36.5); MEAN CORPUSCULAR VOLUME 94.9 fl (80.0-96.0); MONO # 0.5 10^3/uL (0.0-0.8); MONO % 4.8 % (2.0-8.0); NEUTROPHILS # 6.4 10^3/uL (1.5-8.5); NEUTROPHILS % 69.4 % (36.0-66.0); PLATELET COUNT, AUTOMATED 213 10^3/uL (150-450); RED BLOOD COUNT 4.34 10^6/uL (4.00-5.40); WHITE BLOOD COUNT 9.3 10^3/uL (4.0-10.0)
[2022-01-23 09:44] LABS: ALBUMIN 3.3 GM/DL (3.2-5.2); ALT/SGPT 63 U/L (12-78); BILIRUBIN,TOTAL 0.9 MG/DL (0.2-1.0); BLOOD UREA NITROGEN 10 MG/DL (7-18); CALCIUM LEVEL 8.6 MG/DL (8.8-10.2); CARBON DIOXIDE LEVEL 23 MEQ/L (21-32); CHLORIDE LEVEL 106 MEQ/L (98-107); CREATININE FOR GFR 0.88 MG/DL (0.55-1.30); GLOMERULAR FILTRATION RATE > 60.0 (>45); GLUCOSE, FASTING 177 MG/DL (70-100); POTASSIUM SERUM 4.5 MEQ/L (3.5-5.1); SODIUM LEVEL 136 MEQ/L (136-145); TOTAL PROTEIN 6.4 GM/DL (6.4-8.2)
[2022-01-23 10:30] LABS: ERYTHROCYTE SEDIMENTATION RATE 6 mm/hr (0-30)
== END ==
LOC: M LAB 08:28
PROVIDERS: ATTEND Internal Medicine Rheumatology
DX: M05.79 Rheumatoid arthritis with rheumatoid factor of multiple sites without organ or systems involvement (principal)

== ENCOUNTER → 2022-01-24 | Outpatient (REF) | payer MEDICARE | LOC: M LAB REF 12:02 | PROVIDERS: ATTEND Nurse Practitioner Family | DX: R39.9 Unspecified symptoms and signs involving the genitourinary system (principal) ==

== ENCOUNTER → 2022-04-18 | Outpatient (REF) | payer MEDICARE ==
[2022-04-18 13:53] LABS: HEMOGLOBIN A1c 6.6 % (4.0-6.0)
[2022-04-18 13:59] LABS: CHOLESTEROL RISK RATIO 3.12 (<5); HDL CHOLESTEROL 45.7 MG/DL (>40); LDL CHOLESTEROL 53.7 MG/DL (<100)
== END ==
LOC: M LAB REF 12:11
PROVIDERS: ATTEND Nurse Practitioner Family
DX: E11.65 Type 2 diabetes mellitus with hyperglycemia (principal); E78.5 Hyperlipidemia, unspecified

== ENCOUNTER → 2022-06-13 | Outpatient (CLI) | payer MEDICARE ==
[2022-06-13 08:51] LABS: BASO % 0.5 % (0.0-1.0); EOS # 0.2 10^3/uL (0.0-0.5); EOS % 2.9 % (0.0-3.0); HEMOGLOBIN 15.4 g/dl (12.0-15.5); LYMPH # 2.6 10^3/uL (1.5-5.0); LYMPH % 33.6 % (24.0-44.0); MEAN CORPUSCULAR HEMOGLOBIN 31.8 pg (27.0-33.0); MEAN CORPUSCULAR HGB CONC 34.2 g/dl (32.0-36.5); MONO # 0.8 10^3/uL (0.0-0.8); MONO % 10.2 % (2.0-8.0); NEUTROPHILS % 52.5 % (36.0-66.0); PLATELET COUNT, AUTOMATED 184 10^3/uL (150-450); RED BLOOD COUNT 4.84 10^6/uL (4.00-5.40); WHITE BLOOD COUNT 7.6 10^3/uL (4.0-10.0)
[2022-06-13 08:59] LABS: ERYTHROCYTE SEDIMENTATION RATE 11 mm/hr (0-30)
[2022-06-13 09:14] LABS: C REACTIVE PROTEIN QUANTITATIV < 0.40 MG/DL (<1.0)
[2022-06-13 09:15] LABS: ALBUMIN 3.6 G/DL (3.2-5.2); ALKALINE PHOSPHATASE 69 U/L (46-116); ALT/SGPT 38 U/L (7.0-40); AST/SGOT 21 U/L (<34); BLOOD UREA NITROGEN 13 MG/DL (9-23); CALCIUM LEVEL 8.9 MG/DL (8.3-10.6); CARBON DIOXIDE LEVEL 25 MMOL/L (20-31); CHLORIDE LEVEL 105 MMOL/L (98-107); CREATININE FOR GFR 0.79 MG/DL (0.55-1.30); GLOMERULAR FILTRATION RATE > 60.0 (>45); GLUCOSE, FASTING 165 MG/DL (74-106); POTASSIUM SERUM 4.2 MMOL/L (3.5-5.1); SODIUM LEVEL 138 MMOL/L (136-145); TOTAL PROTEIN 6.4 G/DL (5.7-8.2)
== END ==
LOC: M LAB 08:16
PROVIDERS: ATTEND Internal Medicine Rheumatology
DX: M05.79 Rheumatoid arthritis with rheumatoid factor of multiple sites without organ or systems involvement (principal)

== ENCOUNTER → 2022-07-24 | Outpatient (REF) | payer MEDICARE ==
[~2022-07-24] MED LIST changes: +TIMO0.5S20 OD; -TIMO0.5S29 OD
[2022-07-24 16:40] LABS: BASO # 0.1 10^3/uL (0.0-0.2); BASO % 0.7 % (0.0-1.0); EOS # 0.2 10^3/uL (0.0-0.5); EOS % 2.9 % (0.0-3.0); HEMATOCRIT 45.6 % (36.0-47.0); HEMOGLOBIN 15.3 g/dl (12.0-15.5); LYMPH # 2.5 10^3/uL (1.5-5.0); LYMPH % 34.8 % (24.0-44.0); MEAN CORPUSCULAR HEMOGLOBIN 31.3 pg (27.0-33.0); MEAN CORPUSCULAR HGB CONC 33.6 g/dl (32.0-36.5); MEAN CORPUSCULAR VOLUME 93.3 fl (80.0-96.0); MONO # 0.5 10^3/uL (0.0-0.8); MONO % 6.6 % (2.0-8.0); NEUTROPHILS % 54.7 % (36.0-66.0); PLATELET COUNT, AUTOMATED 191 10^3/uL (150-450); RED BLOOD COUNT 4.89 10^6/uL (4.00-5.40); WHITE BLOOD COUNT 7.3 10^3/uL (4.0-10.0)
[2022-07-24 17:21] LABS: ALBUMIN 3.7 G/DL (3.2-5.2); ALKALINE PHOSPHATASE 67 U/L (46-116); ALT/SGPT 40 U/L (7.0-40); AST/SGOT 24 U/L (<34); BILIRUBIN,TOTAL 1.5 MG/DL (0.3-1.2); BLOOD UREA NITROGEN 12 MG/DL (9-23); CALCIUM LEVEL 8.8 MG/DL (8.3-10.6); CARBON DIOXIDE LEVEL 24 MMOL/L (20-31); CHLORIDE LEVEL 105 MMOL/L (98-107); CHOLESTEROL LEVEL 136 MG/DL (<200); CHOLESTEROL RISK RATIO 2.78 (<5); CREATININE FOR GFR 0.84 MG/DL (0.55-1.30); GLOMERULAR FILTRATION RATE > 60.0 (>45); GLUCOSE, FASTING 146 MG/DL (74-106); HDL CHOLESTEROL 48.8 MG/DL (>40); NON-HDL-C 87.2 MG/DL; POTASSIUM SERUM 4.3 MMOL/L (3.5-5.1); SODIUM LEVEL 137 MMOL/L (136-145); TOTAL PROTEIN 6.6 G/DL (5.7-8.2); TRIGLYCERIDES LEVEL 251 MG/DL (<150)
[2022-07-24 17:31] LABS: HEMOGLOBIN A1c 7.6 % (4.0-6.0)
== END ==
LOC: M LAB REF 12:46
PROVIDERS: ATTEND Nurse Practitioner Family
DX: D64.9 Anemia, unspecified (principal); E11.65 Type 2 diabetes mellitus with hyperglycemia; E78.5 Hyperlipidemia, unspecified

== ENCOUNTER → 2022-11-21 | Outpatient (REF) | payer MEDICARE ==
[2022-11-21 12:59] LABS: CHOLESTEROL RISK RATIO 2.91 (<5); HDL CHOLESTEROL 47.3 MG/DL (>40); LDL CHOLESTEROL 37.7 MG/DL (<100); NON-HDL-C 90.7 MG/DL
== END ==
LOC: M LAB REF 11:52
PROVIDERS: ATTEND Nurse Practitioner Family
DX: E78.2 Mixed hyperlipidemia (principal); E11.65 Type 2 diabetes mellitus with hyperglycemia

== ENCOUNTER → 2023-03-14 | Outpatient (REF) | payer MEDICARE ==
[2023-03-14 13:09] LABS: CHOLESTEROL RISK RATIO 2.75 (<5); HDL CHOLESTEROL 54.5 MG/DL (>40); LDL CHOLESTEROL 42.9 MG/DL (<100); NON-HDL-C 95.5 MG/DL
[2023-03-14 13:16] LABS: HEMOGLOBIN A1c 7.2 % (4.0-6.0)
== END ==
LOC: M LAB REF 12:21
PROVIDERS: ATTEND Nurse Practitioner Family
DX: E78.2 Mixed hyperlipidemia (principal); E11.65 Type 2 diabetes mellitus with hyperglycemia

== ENCOUNTER → 2023-03-15 | Outpatient (REF) | payer MEDICARE | LOC: M SFHCRHEU 09:09 | PROVIDERS: ATTEND Internal Medicine Rheumatology | DX: M05.79 Rheumatoid arthritis with rheumatoid factor of multiple sites without organ or systems involvement (principal); M17.0 Bilateral primary osteoarthritis of knee; Z79.899 Other long term (current) drug therapy; Z72.0 Tobacco use; B37.0 Candidal stomatitis ==

== ENCOUNTER → 2023-05-24 | Outpatient (REF) | payer MEDICARE ==
[2023-05-24 12:34] LABS: BASO # 0.1 10^3/uL (0.0-0.2); BASO % 0.6 % (0.0-1.0); EOS # 0.2 10^3/uL (0.0-0.5); EOS % 2.1 % (0.0-3.0); HEMOGLOBIN 14.7 g/dl (12.0-15.5); LYMPH # 2.8 10^3/uL (1.5-5.0); LYMPH % 34.8 % (24.0-44.0); MEAN CORPUSCULAR HEMOGLOBIN 31.8 pg (27.0-33.0); MEAN CORPUSCULAR HGB CONC 34.2 g/dl (32.0-36.5); MEAN CORPUSCULAR VOLUME 93.1 fl (80.0-96.0); MONO # 0.6 10^3/uL (0.0-0.8); MONO % 7.5 % (2.0-8.0); NEUTROPHILS # 4.3 10^3/uL (1.5-8.5); NEUTROPHILS % 54.6 % (36.0-66.0); PLATELET COUNT, AUTOMATED 172 10^3/uL (150-450); RED BLOOD COUNT 4.62 10^6/uL (4.00-5.40); WHITE BLOOD COUNT 7.9 10^3/uL (4.0-10.0)
[2023-05-24 12:41] LABS: ERYTHROCYTE SEDIMENTATION RATE 12 mm/hr (0-30)
[2023-05-24 12:42] LABS: C REACTIVE PROTEIN QUANTITATIV < 0.40 MG/DL (<1.0)
[2023-05-24 12:44] LABS: ALBUMIN 3.7 G/DL (3.2-5.2); ALKALINE PHOSPHATASE 61 U/L (46-116); ALT/SGPT 39 U/L (7.0-40); AST/SGOT 23 U/L (<34); BILIRUBIN,TOTAL 1.1 MG/DL (0.3-1.2); BLOOD UREA NITROGEN 10 MG/DL (9-23); CALCIUM LEVEL 8.8 MG/DL (8.3-10.6); CARBON DIOXIDE LEVEL 25 MMOL/L (20-31); CHLORIDE LEVEL 106 MMOL/L (98-107); CREATININE FOR GFR 0.77 MG/DL (0.55-1.30); GLOMERULAR FILTRATION RATE > 60.0 (>45); GLUCOSE, FASTING 192 MG/DL (74-106); POTASSIUM SERUM 4.5 MMOL/L (3.5-5.1); SODIUM LEVEL 136 MMOL/L (136-145); TOTAL PROTEIN 6.5 G/DL (5.7-8.2)
== END ==
LOC: M LAB REF 11:47
PROVIDERS: ATTEND Nurse Practitioner Family
DX: M05.9 Rheumatoid arthritis with rheumatoid factor, unspecified (principal)

== ENCOUNTER → 2023-06-13 | Outpatient (REF) | payer MEDICARE ==
[2023-06-13 13:37] LABS: CHOLESTEROL RISK RATIO 2.73 (<5); HDL CHOLESTEROL 48.7 MG/DL (>40); LDL CHOLESTEROL 33.9 MG/DL (<100); NON-HDL-C 84.3 MG/DL
[2023-06-13 13:45] LABS: HEMOGLOBIN A1c 8.9 % (4.0-6.0)
== END ==
LOC: M LAB REF 12:25
PROVIDERS: ATTEND Nurse Practitioner Family
DX: E78.2 Mixed hyperlipidemia (principal); E11.65 Type 2 diabetes mellitus with hyperglycemia

== ENCOUNTER → 2023-08-27 | Outpatient (REF) | payer MEDICARE | LOC: M LAB REF 12:50 | PROVIDERS: ATTEND Nurse Practitioner Family | DX: R39.9 Unspecified symptoms and signs involving the genitourinary system (principal) ==

== ENCOUNTER → 2023-09-05 | Outpatient (REF) | payer MEDICARE ==
[2023-09-05 15:20] LABS: ALBUMIN 3.6 G/DL (3.2-5.2); ALKALINE PHOSPHATASE 70 U/L (46-116); ALT/SGPT 48 U/L (7.0-40); AST/SGOT 37 U/L (<34); BLOOD UREA NITROGEN 11 MG/DL (9-23); CALCIUM LEVEL 8.9 MG/DL (8.3-10.6); CARBON DIOXIDE LEVEL 22 MMOL/L (20-31); CHLORIDE LEVEL 103 MMOL/L (98-107); CHOLESTEROL LEVEL 117 MG/DL (<200); CHOLESTEROL RISK RATIO 2.81 (<5); CREATININE FOR GFR 0.87 MG/DL (0.55-1.30); GLOMERULAR FILTRATION RATE > 60.0 (>45); GLUCOSE, FASTING 218 MG/DL (74-106); HDL CHOLESTEROL 41.6 MG/DL (>40); LDL CHOLESTEROL 13.2 MG/DL (<100); NON-HDL-C 75.4 MG/DL; POTASSIUM SERUM 5.2 MMOL/L (3.5-5.1); SODIUM LEVEL 134 MMOL/L (136-145); TOTAL PROTEIN 6.3 G/DL (5.7-8.2); TRIGLYCERIDES LEVEL 311 MG/DL (<150)
== END ==
LOC: M LAB REF 13:09
PROVIDERS: ATTEND Nurse Practitioner Family
DX: E11.65 Type 2 diabetes mellitus with hyperglycemia (principal); E78.2 Mixed hyperlipidemia

== ENCOUNTER → 2023-09-26 | Outpatient (REF) | payer MEDICARE | LOC: M LAB REF 11:54 | PROVIDERS: ATTEND Nurse Practitioner Family | DX: R39.9 Unspecified symptoms and signs involving the genitourinary system (principal) ==

== ENCOUNTER → 2023-10-10 | Outpatient (CLI) | payer MEDICARE ==
[2023-10-10 12:52] LABS: BASO % 0.5 % (0.0-1.0); EOS # 0.2 10^3/uL (0.0-0.5); EOS % 2.8 % (0.0-3.0); HEMATOCRIT 45.7 % (36.0-47.0); HEMOGLOBIN 15.5 g/dl (12.0-15.5); LYMPH # 3.4 10^3/uL (1.5-5.0); LYMPH % 40.2 % (24.0-44.0); MEAN CORPUSCULAR HEMOGLOBIN 31.3 pg (27.0-33.0); MEAN CORPUSCULAR HGB CONC 33.9 g/dl (32.0-36.5); MEAN CORPUSCULAR VOLUME 92.3 fl (80.0-96.0); MONO # 0.7 10^3/uL (0.0-0.8); MONO % 8.1 % (2.0-8.0); NEUTROPHILS # 4.1 10^3/uL (1.5-8.5); NEUTROPHILS % 48.2 % (36.0-66.0); PLATELET COUNT, AUTOMATED 185 10^3/uL (150-450); RED BLOOD COUNT 4.95 10^6/uL (4.00-5.40); WHITE BLOOD COUNT 8.5 10^3/uL (4.0-10.0)
[2023-10-10 12:56] LABS: ERYTHROCYTE SEDIMENTATION RATE 18 mm/hr (0-30)
[2023-10-10 13:14] LABS: C REACTIVE PROTEIN QUANTITATIV < 0.40 MG/DL (<1.0)
[2023-10-10 13:15] LABS: ALKALINE PHOSPHATASE 76 U/L (46-116); ALT/SGPT 62 U/L (7.0-40); AST/SGOT 42 U/L (<34); BILIRUBIN,TOTAL 0.9 MG/DL (0.3-1.2); BLOOD UREA NITROGEN 8 MG/DL (9-23); CALCIUM LEVEL 9.7 MG/DL (8.3-10.6); CARBON DIOXIDE LEVEL 24 MMOL/L (20-31); CHLORIDE LEVEL 107 MMOL/L (98-107); CREATININE FOR GFR 0.73 MG/DL (0.55-1.30); GLOMERULAR FILTRATION RATE > 60.0 (>45); GLUCOSE, FASTING 119 MG/DL (74-106); POTASSIUM SERUM 4.3 MMOL/L (3.5-5.1); SODIUM LEVEL 138 MMOL/L (136-145)
[2023-10-15 13:52] LABS: QuantiFERON-TB Gold Plus NEGATIVE (NEGATIVE)
== END ==
LOC: M LAB 12:25
PROVIDERS: ATTEND Internal Medicine Rheumatology
DX: M05.79 Rheumatoid arthritis with rheumatoid factor of multiple sites without organ or systems involvement (principal); M17.0 Bilateral primary osteoarthritis of knee; Z79.899 Other long term (current) drug therapy; Z72.0 Tobacco use

== ENCOUNTER → 2023-10-12 | Outpatient (REF) | payer MEDICARE | LOC: M SFHCRHEU 10:30 | PROVIDERS: ATTEND Internal Medicine Rheumatology | DX: M05.79 Rheumatoid arthritis with rheumatoid factor of multiple sites without organ or systems involvement (principal) ==

== ENCOUNTER → 2023-10-24 | Outpatient (CLI) | payer MEDICARE | LOC: M SOG 07:52 | PROVIDERS: ATTEND Orthopaedic Surgery | DX: M25.561 Pain in right knee (principal); M25.562 Pain in left knee; M17.0 Bilateral primary osteoarthritis of knee ==

== ENCOUNTER → 2023-11-28 | Outpatient (CLI) | payer MEDICARE ==
[2023-11-28 13:12] LABS: ALBUMIN 4.2 G/DL (3.2-5.2); ALKALINE PHOSPHATASE 78 U/L (46-116); ALT/SGPT 48 U/L (7.0-40); AST/SGOT 30 U/L (<34); BILIRUBIN,TOTAL 1.2 MG/DL (0.3-1.2); BLOOD UREA NITROGEN 9 MG/DL (9-23); CALCIUM LEVEL 9.8 MG/DL (8.3-10.6); CARBON DIOXIDE LEVEL 26 MMOL/L (20-31); CHLORIDE LEVEL 105 MMOL/L (98-107); CREATININE FOR GFR 0.73 MG/DL (0.55-1.30); GLOMERULAR FILTRATION RATE > 60.0 (>45); GLUCOSE, FASTING 118 MG/DL (74-106); POTASSIUM SERUM 4.4 MMOL/L (3.5-5.1); SODIUM LEVEL 136 MMOL/L (136-145); TOTAL PROTEIN 7.3 G/DL (5.7-8.2)
== END ==
LOC: M LAB 12:10
PROVIDERS: ATTEND Internal Medicine Rheumatology
DX: M05.79 Rheumatoid arthritis with rheumatoid factor of multiple sites without organ or systems involvement (principal)

== ENCOUNTER → 2023-11-30 | Outpatient (REF) | payer MEDICARE | LOC: M SFHCRHEU 08:11 | PROVIDERS: ATTEND Internal Medicine Rheumatology | DX: M05.79 Rheumatoid arthritis with rheumatoid factor of multiple sites without organ or systems involvement (principal) ==

== ENCOUNTER → 2023-12-17 | Outpatient (REF) | payer MEDICARE ==
[2023-12-17 14:15] LABS: HEMOGLOBIN A1c 7.3 % (4.0-6.0)
[2023-12-17 14:18] LABS: CHOLESTEROL RISK RATIO 2.77 (<5); HDL CHOLESTEROL 49.3 MG/DL (>40); LDL CHOLESTEROL 22.9 MG/DL (<100); NON-HDL-C 87.7 MG/DL
[2023-12-17 14:19] LABS: THYROID STIMULATING HORMONE 3.819 uIU/ML (0.55-4.78); TOTAL 25(OH) VITAMIN D 35.2 NG/ML (20.0-100.0)
== END ==
LOC: M LAB REF 12:33
PROVIDERS: ATTEND Nurse Practitioner Family
DX: E78.2 Mixed hyperlipidemia (principal); E11.65 Type 2 diabetes mellitus with hyperglycemia; E66.9 Obesity, unspecified; E55.9 Vitamin D deficiency, unspecified

== ENCOUNTER → 2024-04-14 | Outpatient (REF) | payer MEDICARE ==
[2024-04-14 12:42] LABS: BASO % 0.6 % (0.0-1.0); EOS # 0.2 10^3/uL (0.0-0.5); EOS % 2.8 % (0.0-3.0); HEMATOCRIT 42.6 % (36.0-47.0); HEMOGLOBIN 14.9 g/dl (12.0-15.5); LYMPH # 2.6 10^3/uL (1.5-5.0); LYMPH % 35.9 % (24.0-44.0); MEAN CORPUSCULAR HEMOGLOBIN 31.4 pg (27.0-33.0); MEAN CORPUSCULAR VOLUME 89.7 fl (80.0-96.0); MONO # 0.6 10^3/uL (0.0-0.8); MONO % 8.3 % (2.0-8.0); NEUTROPHILS # 3.7 10^3/uL (1.5-8.5); NEUTROPHILS % 52.1 % (36.0-66.0); PLATELET COUNT, AUTOMATED 169 10^3/uL (150-450); RED BLOOD COUNT 4.75 10^6/uL (4.00-5.40); WHITE BLOOD COUNT 7.1 10^3/uL (4.0-10.0)
[2024-04-14 12:44] LABS: ALBUMIN 3.6 G/DL (3.2-5.2); ALKALINE PHOSPHATASE 69 U/L (35-104); ALT/SGPT 37 U/L (7.0-40); AST/SGOT 25 U/L (<34); BILIRUBIN,TOTAL 1.3 MG/DL (0.3-1.2); BLOOD UREA NITROGEN 12 MG/DL (9-23); CALCIUM LEVEL 9.7 MG/DL (8.3-10.6); CARBON DIOXIDE LEVEL 25 MMOL/L (20-31); CHLORIDE LEVEL 101 MMOL/L (98-107); CHOLESTEROL LEVEL 152 MG/DL (<200); CHOLESTEROL RISK RATIO 3.29 (<5); CREATININE FOR GFR 0.69 MG/DL (0.55-1.30); GLOMERULAR FILTRATION RATE > 60.0 (>45); GLUCOSE, FASTING 278 MG/DL (74-106); HDL CHOLESTEROL 46.1 MG/DL (>40); LDL CHOLESTEROL 41.5 MG/DL (<100); MAGNESIUM LEVEL 1.8 MG/DL (1.8-2.4); NON-HDL-C 105.9 MG/DL; POTASSIUM SERUM 4.2 MMOL/L (3.5-5.1); SODIUM LEVEL 136 MMOL/L (136-145); TOTAL PROTEIN 7.1 G/DL (5.7-8.2); TRIGLYCERIDES LEVEL 322 MG/DL (<150)
[2024-04-14 13:46] LABS: HEMOGLOBIN A1c 9.9 % (4.0-6.0)
== END ==
LOC: M LAB REF 11:59
PROVIDERS: ATTEND Nurse Practitioner Family
DX: E66.9 Obesity, unspecified (principal); Z79.899 Other long term (current) drug therapy

== ENCOUNTER → 2024-05-12 | Outpatient (CLI) | payer MEDICARE ==
[2024-05-12 13:22] LABS: C REACTIVE PROTEIN QUANTITATIV < 0.50 MG/DL (<1.0)
[2024-05-12 13:23] LABS: ALBUMIN 3.7 G/DL (3.2-5.2); ALKALINE PHOSPHATASE 80 U/L (35-104); ALT/SGPT 46 U/L (7.0-40); AST/SGOT 38 U/L (<34); BILIRUBIN,TOTAL 1.2 MG/DL (0.3-1.2); BLOOD UREA NITROGEN 11 MG/DL (9-23); CALCIUM LEVEL 8.9 MG/DL (8.3-10.6); CARBON DIOXIDE LEVEL 21 MMOL/L (20-31); CHLORIDE LEVEL 103 MMOL/L (98-107); CREATININE FOR GFR 0.69 MG/DL (0.55-1.30); GLOMERULAR FILTRATION RATE > 60.0 (>45); GLUCOSE, FASTING 179 MG/DL (74-106); POTASSIUM SERUM 4.7 MMOL/L (3.5-5.1); SODIUM LEVEL 136 MMOL/L (136-145); TOTAL PROTEIN 7.1 G/DL (5.7-8.2)
[2024-05-12 21:05] LABS: BASO # 0.1 10^3/uL (0.0-0.2); BASO % 0.9 % (0.0-1.0); EOS # 0.2 10^3/uL (0.0-0.5); HEMATOCRIT 44.2 % (36.0-47.0); HEMOGLOBIN 15.3 g/dl (12.0-15.5); LYMPH # 2.5 10^3/uL (1.5-5.0); LYMPH % 31.2 % (24.0-44.0); MEAN CORPUSCULAR HEMOGLOBIN 31.4 pg (27.0-33.0); MEAN CORPUSCULAR HGB CONC 34.6 g/dl (32.0-36.5); MEAN CORPUSCULAR VOLUME 90.8 fl (80.0-96.0); MONO # 0.4 10^3/uL (0.0-0.8); MONO % 5.6 % (2.0-8.0); NEUTROPHILS # 4.7 10^3/uL (1.5-8.5); NEUTROPHILS % 59.9 % (36.0-66.0); PLATELET COUNT, AUTOMATED 160 10^3/uL (150-450); RED BLOOD COUNT 4.87 10^6/uL (4.00-5.40); WHITE BLOOD COUNT 7.9 10^3/uL (4.0-10.0)
[2024-05-12 21:30] LABS: ERYTHROCYTE SEDIMENTATION RATE 23 mm/hr (0-30)
== END ==
LOC: M LAB 10:54
PROVIDERS: ATTEND Internal Medicine Rheumatology
DX: M05.79 Rheumatoid arthritis with rheumatoid factor of multiple sites without organ or systems involvement (principal)

== ENCOUNTER → 2024-07-14 | Outpatient (REF) | payer MEDICARE ==
[2024-07-14 12:55] LABS: CHOLESTEROL RISK RATIO 3.02 (<5); LDL CHOLESTEROL 32.6 MG/DL (<100)
[2024-07-14 13:04] LABS: CREATININE, URINE 87.9 MG/DL
[2024-07-14 13:06] LABS: MALB URINE SIEMENS < 3.0 MG/L
[2024-07-14 13:07] LABS: HEMOGLOBIN A1c 11.4 % (4.0-6.0)
== END ==
LOC: M LAB REF 11:55
PROVIDERS: ATTEND Nurse Practitioner Family
DX: E11.65 Type 2 diabetes mellitus with hyperglycemia (principal); E78.2 Mixed hyperlipidemia

== ENCOUNTER → 2024-11-26 | Outpatient (REF) | payer MEDICARE ==
[2024-11-26 12:36] LABS: CHOLESTEROL LEVEL 133.0 MG/DL (<200); CHOLESTEROL RISK RATIO 2.91 (<5); LDL CHOLESTEROL 27.2 MG/DL (<100); NON-HDL-C 87.4 MG/DL; TRIGLYCERIDES LEVEL 301.0 MG/DL (<150)
[2024-11-26 13:28] LABS: ESTIMATED AVERAGE GLUCOSE 180.0 MG/DL (60-110)
[2024-11-26 16:25] LABS: APPEARANCE, URINE HAZY (CLEAR); BACTERIA, URINE AUTO 1+ (NEGATIVE); BILIRUBIN, URINE AUTO NEGATIVE (NEGATIVE); BLOOD, URINE BLOOD 1+ (NEGATIVE); GLUCOSE, URINE (UA) AUTO 3+ mg/dL (NEGATIVE); KETONE, URINE AUTO NEGATIVE (NEGATIVE); LEUKOCYTE ESTERASE, URINE AUTO 3+ (NEGATIVE); NITRITE, URINE AUTO NEGATIVE (NEGATIVE); PROTEIN, URINE AUTO NEGATIVE (NEGATIVE); RBC, URINE AUTO 3 /HPF (0-3); SPECIFIC GRAVITY URINE AUTO 1.009 (1.002-1.035); SQUAMOUS EPITHELIAL CELL UR AU 2 /HPF (0-6); UROBILINOGEN, URINE AUTO 0.2 mg/dL (0.0-2.0); WBC, URINE AUTO 118 /HPF (0-3)
== END ==
LOC: M LAB REF 11:46
PROVIDERS: ATTEND Student in an Organized Health Care Education/Training Program
DX: B37.31 Acute candidiasis of vulva and vagina (principal); E11.65 Type 2 diabetes mellitus with hyperglycemia; E78.5 Hyperlipidemia, unspecified

== ENCOUNTER → 2024-12-15 | Outpatient (REF) | payer MEDICARE | LOC: M LAB REF 16:37 | PROVIDERS: ATTEND Student in an Organized Health Care Education/Training Program | DX: R39.9 Unspecified symptoms and signs involving the genitourinary system (principal) ==